=== PATIENT | female | born 1950 | race Caucasian/White ===

== ENCOUNTER 2017-02-02 18:54 | Inpatient (IN) ==
[2017-02-02] MEDS ORDERED: NITROGLYCERIN 2% OINT 1 INCH/GM PACK TOP STA (19:32)
[2017-02-02] MEDS ORDERED: FUROSEMIDE 100 MG/10 ML VIAL IV STA (19:32)
[2017-02-02] MEDS ORDERED: ONDANSETRON 4 MG/2 ML VIAL IM STA (19:32)
[2017-02-02] MEDS ORDERED: methylPREDNISolone SOD SUC 125 MG/2 ML VIAL IV STA (19:32)
[2017-02-02] MEDS ORDERED: cefTRIAXone 1,000 MG in SODIUM CHLORIDE 0.9% 100 ML IV STA (19:32)
[2017-02-02] MEDS ORDERED: ENOXAPARIN 100 MG/ML SYRINGE SUBCUT STA (19:32)
[2017-02-02] MEDS ORDERED: MORPHINE 2 MG/1 ML SYRINGE IV STA (19:32)
[2017-02-02] MEDS ORDERED: ASPIRIN 325 MG TABLET PO STA (19:32)
[2017-02-02] MEDS ORDERED: cefTRIAXone 1,000 MG VIAL ONE (19:51)
[2017-02-02] MEDS ORDERED: FUROSEMIDE 40 MG/4 ML VIAL ONE (19:51)
[2017-02-02] MEDS ORDERED: ONDANSETRON 4 MG/2 ML VIAL ONE (19:51)
[2017-02-02] MEDS ORDERED: ENOXAPARIN 100 MG/ML SYRINGE SUBCUT ONE (19:51)
[2017-02-02] MEDS ORDERED: MORPHINE 2 MG/1 ML SYRINGE ONE (19:52)
[2017-02-02] MEDS ORDERED: ASPIRIN 325 MG TABLET ONE (19:52)
[2017-02-02] MEDS ORDERED: methylPREDNISolone SOD SUC 125 MG/2 ML VIAL ONE (19:52)
[2017-02-02 19:56] LABS: Basophils # 0.1 10*3/uL (0.0-0.2); Basophils % 0.4 % (0.0-0.8); Eosinophils # 0.1 10*3/uL (0.0-0.87); Eosinophils % 1.3 % (0.00-10.9); Hematocrit 36.4 VOL% (35.7-47.0); Hemoglobin 11.8 GM/DL (12.0-16.0); Immature Granulocytes % 0.4 %; Immature Granulocytes Absolute 0.05 #; Lymphocytes # 2.8 10*3/uL (1.4-4.0); Lymphocytes % 24.8 % (21.3-54.2); Mean Corpuscular HGB Conc 32.4 GM/DL (32-36); Mean Corpuscular Hemoglobin 29 PG (27-34); Mean Corpuscular Volume 88.6 FL (87-102); Mean Platelet Volume 9.8 FL (9.6-12.0); Monocytes % 9.1 % (1.7-12.7); Neutrophils # 7.2 10*3/uL (1.4-7.4); Platelet Count 286 T/CUMM (130-400); Red Blood Count 4.11 MC/CUMM (3.8-5.5); Red Cell Distribution Width 14.9 % (9.3-17.3); White Blood Count 11.2 T/CUMM (4-12)
[2017-02-02 19:57] LABS: ABG Base Excess 5.9 MMOL/L (-2.5-2.5); ABG HCO3 29.2 MMOL/L (20-26); ABG Oxygen Saturation 94.8 % (95-100); ABG PCO2 37.6 MM HG (35-48); ABG PH 7.508 (7.35-7.45); ABG PO2 67.2 MM HG (80-95); ABG TCO2 30.4 MMOL/L (23-27); Allen Test Positive
[2017-02-02 20:00] LABS: Apearance,Urine CLEAR (Clear); Bilirubin,Urine Negative (Negative); Blood, Urine Negative (Negative); Glucose,Urine (UA) Negative (Negative); Ketones,Urine Negative (Negative); Nitrite,Urine Negative (Negative); Protein,Urine Negative; Urine Color Straw (Yellow); Urine Specific Gravity 1.021 (1.001-1.035); Urine Urobilinogen < 2.0 EU/DL (0.2-1.0); WBC,Urine <1 /HPF (0-6)
[2017-02-02] MEDS ORDERED: ALBUTEROL 2.5 MG/3 ML NEB RESP TX SCH (20:00)
--- NOTE | 2017-02-02 20:01 | Emergency Department Note ---
Krys Mohamud Brittany, am scribing for, and in the presence of, Gato Poon MD 19:35. Cleve Mohamud Charles R, MD, personally performed the services described in this documentation, ascribed by Tanvi Marcano in my presence, and it is both accurate and complete . Arrival - Arrival Chief Complaint: Shortness of Breath ED Nursing Triage Note: Pt arrives via ems from [facility] for further eval of new onset CHF. Pt states that she has been having worsening sob over the last 4-5 days. States that she has a cough and that she is unsure of any fever. Pt denies any chest pain at time of triage. States that she just feels "tight and tired" from not being able to breathe. No resp distress at this time. Mode of Arrival: Stretcher Limitations: No Limitations Source: Patient Time Seen by Provider: 02/02/17 19:13 - History of Present Illness HPI Narrative: This is a 66 y/o white female,who presents to the ED for further evaluation of acute CHF. She states for the past 4-5 days ago. She reports a cough as well. She has noticed dyspnea as well. She states she was seen at [facility] for acute CHF. She states she was given Lasix while at [facility]. Pt has no other complaints/pain in the ED at this time. Pt has a PMhx of CVA, HTN, dyslipidemia , and back/neck surgery. Pt has had an eye surgery, tonsilectomy, cholecystectomy, breast surgery, spinal surgery, and hysterectomy. Pt has a family medical Hx of cancer, diabetes, and HTN. Pt is a current every day smoker , although she states 3 days ago, she quit. Onset (ago): day(s) (Started 3-4 days ago) Consistency: constant Severity: moderate Date of Last Menstrual Period: Hyster Allergies/Adverse Reactions: Allergies Allergy/AdvReac Type Severity Reaction Status Date / Time Hydromorphone [From Dilaudid] Allergy ITCHING Verified 03/15/15 10:05 Home Medications: Home Medications Medication Instructions Recorded Confirmed Type Aspirin [Ecotrin] 81 mg PO DAILY 02/02/17 02/02/17 History Citalopram Hydrobromide [Celexa] 10 mg PO DAILY 02/02/17 02/02/17 History Escitalopram [Lexapro] 10 mg PO BEDTIME 02/02/17 02/02/17 History Valsartan 80 mg PO DAILY 02/02/17 02/02/17 History metFORMIN [Glucophage] 250 mg PO BID W/MEALS 02/02/17 02/02/17 History oxyCODONE/ACETAMINOPHEN 5-325 1 tablet PO DAILY PRN 02/02/17 02/02/17 History [Percocet 5-325] Review of System - Review of System 12 point system: reviewed and no additional remarkable complaints except as stated - Review of System Respiratory: Present: cough Cardiovascular: Present: chest pain, dyspnea on exertion Medical,Surgical,& Family Hx - Medical History Cardio: History of: Hypertension (was off meds for over one year until yesterday ) Neurology: History of: Cerebrovascular Accident Endocrine: History of: Diabetes Mellitus (NIDDM) (had been off meds due to weight loss for about one year until yesterday), Dyslipidemia Musculoskeletal: History of: Back/Neck Problems - Surgical History HEENT Surgeries: Surgical HX of: Eye Surgery, Tonsilectomy & Adenoidectomy Abdominal Surgeries: Surgical HX of: Appendectomy, Cholecystectomy Reproductive Surgeries: Surgical HX of;: Breast Surgery, Hysterectomy Orthopedic Surgeries: Surgical HX of;: Spinal Surgery (ruptured disk) - Family History Family History: Reports;: Family Cancer, Family Diabetes, Family Hypertension - Social History Smoking Status: Current every day smoker Frequency of Alcohol Use: None Type of Drug Use: None Exam Vital Signs: Vital Signs Temperature 99.0 F 02/02/17 18:54 Pulse Rate 120 H 02/02/17 19:00 Respiratory Rate 18 02/02/17 19:00 Blood Pressure 130/91 02/02/17 18:54 O2 Sat by Pulse Oximetry 94 L 02/02/17 18:54 - General General appearance: alert, in no apparent distress - Head Head exam: Present: atraumatic, normocephalic, normal inspection - Eye Eye exam: Present: normal appearance, PERRL, EOMI. Absent: nystagmus, miosis, mydriasis - ENT ENT exam: Present: normal exam, normal oropharynx, mucous membranes moist, TM's normal bilaterally, normal external ear exam - Neck Neck exam: Present: normal inspection, full ROM, trachea midline. Absent: tenderness, meningismus, lymphadenopathy, thyromegaly - Chest Chest inspection: Present: normal inspection, symmetric chest wall rise. Absent : tenderness, rash, abscess - Respiratory Respiratory exam: Present: rales, rhonchi, wheezes - Cardiovascular Cardiovascular exam: Present: normal rhythm, tachycardia, normal heart sounds. Absent: murmur, rubs, gallop, clicks, JVD - Abdominal Exam Abdominal exam: Present: soft, normal bowel sounds. Absent: distention, tenderness, guarding, rebound, rigidity - Rectal Exam Rectal exam: Present: deferred - Extremities Exam Extremities exam: Present: normal capillary refill, pedal edema (+1 pitting edema RLE, while the LLE has a boot placed on it. ). Absent: tenderness, joint swelling, calf tenderness - Back Exam Back exam: Present: normal inspection, full ROM. Absent: tenderness, muscle spasm, rashes - Neurological Exam Neurological exam: Present: alert, oriented X3, CN II-XII intact. Absent: motor sensory deficit - Psychiatric Psychiatric exam: Present: normal affect, normal mood. Absent: depressed, agitated, anxious, flat affect, manic - Skin Skin exam: Present: warm, dry, intact, normal color. Absent: rash, cyanosis, diaphoresis, erythema, pallor, mottled Course - Consultations Consultation #1: Will contact the hospitalist about admitting patient. Results - Labs CBC & BMP: 02/02/17 19:41 Lab Results: I have reviewed the patients labs Critical Care Time Critical Care Time: Yes Total Critical Care Time: 60 Disposition Clinical Impression: Acute exacerbation of chronic obstructive airways disease, Congestive heart failure, Elevated troponin, Acute dyspnea, Non-ST elevated myocardial infarction Case discussed with: patient, patient's family Disposition: Still a Patient Condition: Guarded Time of Disposition: 20:01
[2017-02-02 20:04] LABS: PT Patient Result 10.5 SECS
--- NOTE | 2017-02-02 20:13 | XRay Report ---
Portable chest Date: 02/02/2017 Clinical history: Shortness of breath Comparison: 02/02/2017 Technique: Portable AP sitting chest Findings: The heart is minimally enlarged with prominent pulmonary vasculature. Diffuse parenchymal findings persist especially in the lower lung zones with moderate bilateral pleural effusions. Stable mediastinum and osseous structures. Impression: Persistent cardiomegaly with moderate bilateral pleural effusions with moderate pulmonary edema with associated atelectasis/consolidation in the lower lobes. PROCEDURE INTERPRETED AT [facility] DEPARTMENT OF RADIOLOGY Final Report Signed by: Dr. Erlinda Wilson
--- NOTE | 2017-02-02 20:29 | Hospitalist History & Physical ---
Assessment and Plan - Time spent with patient Time spent with patient: Greater than 30 minutes (1) Congestive heart failure Status: Acute Assessment and plan: Patient presents with a four-day history of progressive dyspnea and findings consistent with new onset congestive heart failure. She does give a history of being febrile with a nonproductive cough and CT reveals possible atelectasis which I favor versus possible pneumonia. However she has been cultured and we will continue empiric IV antibiotics at this time. Will also obtain serial cardiac isoenzymes and EKGs while providing nitrates, beta-blockers, Lovenox, IV Lasix and potassium supplementation for tonight. Will continue O2 supplementation and nebulizer therapy. Will obtain echocardiogram to assess LV function and valvular anatomy as well as wall motion abnormalities in the a.m. Will consult cardiology to see and assist with her care. Current Visit: Yes (2) Elevated troponin Status: Acute Assessment and plan: As noted above she did have chest pain 4-5 days ago and now has an elevated troponin at [facility]. We will obtain serial cardiac biomarkers and EKGs. She is currently pain-free. Will continue medical therapy as noted above. Current Visit: Yes (3) HTN (hypertension) Status: Chronic Assessment and plan: Patient has chronic essential hypertension. We will continue her valsartan at this time. She will additionally receive nitrates, beta-blockers and diuretic therapy secondary to her elevated troponin and probable new onset CHF. Current Visit: No Qualifiers: Hypertension type: essential hypertension Qualified Code(s): I10 - Essential (primary) hypertension (4) Diabetes mellitus Status: Chronic Assessment and plan: Will continue her home metformin at this time and place on Accu-Cheks with sliding scale insulin. Current Visit: No Qualifiers: Diabetes mellitus type: type 2 Diabetes mellitus complication status: with circulatory complication Diabetes mellitus complication detail: with other circulatory complications Qualified Code(s): E11.59 - Type 2 diabetes mellitus with other circulatory complications History of Present Illness Chief complaint: Short of breath 4-5 days History of present illness: Ms. Etienne is a 66 year old white female with a history of hypertension, diabetes mellitus, remote CVA who presents with 4-5 day history of progressive shortness of breath with exertion and increasing orthopnea. She also states that about 4-5 days ago she had substernal chest discomfort with radiation up into her jaw that lasted about 30 minutes but was relieved with Prevacid. She states that she has been febrile and has had a nonproductive cough during this period of time. She denies any nausea, vomiting, diarrhea, constipation, melena , hematochezia, hematemesis, dysuria, hematuria, urinary frequency urgency or incontinence. Activity has been somewhat decreased and she had a left ankle fracture back in July and had this operated on approximately 2 weeks ago while in [facility]. Today she presented to [facility] and was evaluate and found to have new onset CHF and was transferred to [facility]. While at [facility] she was treated with Nitropaste, aspirin, Lasix. She had CT a of the chest wall where which revealed no evidence of pulmonary emboli however there was moderate bilateral pleural effusions and consolidation in the lower lobes that may represent atelectasis or pneumonia. Her laboratory studies were significant for an elevated proBNP of 4996 with normals being less than 450. Her troponin was elevated at 1.99 with normal being below 0.056. Her sodium was 141, potassium 3.8, chloride 105, bicarb 26, glucose 158, BUN 14, creatinine 0.8. Her white blood count was 9.4, hemoglobin 11.5, hematocrit 37.4, platelet count 298,000. D-dimer was elevated as well. Her primary care provider is Sandra in [facility]. Home Medications Medication Instructions Recorded Confirmed Type Aspirin [Ecotrin] 81 mg PO DAILY 02/02/17 02/02/17 History Citalopram Hydrobromide [Celexa] 10 mg PO DAILY 02/02/17 02/02/17 History Escitalopram [Lexapro] 10 mg PO BEDTIME 02/02/17 02/02/17 History Valsartan 80 mg PO DAILY 02/02/17 02/02/17 History metFORMIN [Glucophage] 250 mg PO BID W/MEALS 02/02/17 02/02/17 History oxyCODONE/ACETAMINOPHEN 5-325 1 tablet PO DAILY PRN 02/02/17 02/02/17 History [Percocet 5-325] Allergies Allergy/AdvReac Type Severity Reaction Status Date / Time Hydromorphone [From Dilaudid] Allergy ITCHING Verified 03/15/15 10:05 Medical,Surgical,& Family Hx - Medical History Cardio: History of: Hypertension (was off meds for over one year until yesterday ) Neurology: History of: Cerebrovascular Accident Endocrine: History of: Diabetes Mellitus (NIDDM) (had been off meds due to weight loss for about one year until yesterday), Dyslipidemia Musculoskeletal: History of: Back/Neck Problems - Surgical History HEENT Surgeries: Surgical HX of: Eye Surgery, Tonsilectomy & Adenoidectomy Abdominal Surgeries: Surgical HX of: Appendectomy, Cholecystectomy Reproductive Surgeries: Surgical HX of;: Breast Surgery, Hysterectomy Orthopedic Surgeries: Surgical HX of;: Spinal Surgery (ruptured disk) - Family History Family History: Reports;: Family Cancer, Family Diabetes, Family Hypertension - Social History Smoking Status: Current every day smoker Frequency of Alcohol Use: None Type of Drug Use: None 12 point system: reviewed and no additional remarkable complaints except as stated Exam - Constitutional Vitals: Period Temp Pulse Resp BP Sys/[place] Pulse Ox Last 24 Hr 99.0 F-99.0 F 115-124 18-22 130-130/91-91 94-97 General appearance: mild distress - Head Head exam: Present: normocephalic, atraumatic - Eye Eye exam: Present: EOMI. Absent: scleral icterus Pupils: Present: VLADIMIR - ENT ENT exam: Present: normal oropharynx - Neck Neck exam: Present: normal inspection. Absent: lymphadenopathy, meningismus, tenderness, thyromegaly - Respiratory Respiratory exam: Present: rales (She has rales in the bases bilaterally). Absent: rhonchi, wheezes - Cardiovascular Cardiovascular exam: Present: regular rate and rhythm, tachycardia. Absent: rubs, systolic murmur - GI/Abdominal GI/Abdominal exam: Present: normal bowel sounds, soft. Absent: mass, tenderness , rebound - Extremities Exam Extremities exam: Present: normal capillary refill, edema (Trace edema on the right lower extremity with splinting of her left lower extremity). Absent: calf tenderness - Back Exam Back exam: Present: normal inspection - Neurological Exam Neurological exam: Present: alert, oriented X3, CN II-XII intact. Absent: motor sensory deficit - Psychiatric Psychiatric exam: Present: normal affect, normal mood. Absent: agitated, anxious - Skin Skin exam: Present: warm, dry. Absent: erythema, rash Results - Labs CBC & BMP: 02/02/17 19:41 Lab Results: I have reviewed the past 24 hour labs Labs: Labs from [facility] have been reviewed and as indicated in the HPI. - EKG EKG shows: tachycardia, sinus rhythm - Diagnostic Findings Procedure: CT - chest: report reviewed by me
[2017-02-02 20:35] LABS: Albumin 3.6 G/DL (3.4-5.0); Bilirubin,Total 1.1 MG/DL (0.2-1.0); Calcium 8.8 MG/DL (8.5-10.1); Magnesium 2.1 MG/DL (1.8-2.4); Potassium 3.5 MMOL/L (3.5-5.1); Total Protein 6.8 G/DL (6.4-8.3)
[2017-02-02 20:37] LABS: Troponin I Only 2.12 NG/ML (0.00-0.045)
[2017-02-02] MEDS ORDERED: ACETAMINOPHEN 325 MG TABLET PO PRN (21:03)
[2017-02-02] MEDS ORDERED: DEXTROSE 50% 25 GM/50 ML VIAL IV PRN (21:03)
[2017-02-02] MEDS ORDERED: ONDANSETRON 4 MG/2 ML VIAL IV PRN (21:03)
[2017-02-02] MEDS ORDERED: GLUCAGON 1 MG VIAL IM PRN (21:03)
[2017-02-02] MEDS ORDERED: PNEUMOCOCCAL VACCINE (13 VALENT) 0.5 ML SYRINGE IM ONE (21:46)
[2017-02-02] MEDS: INSULIN LISPRO 100 UNIT/ML SUBCUT SCH (22:46)
[2017-02-02] MEDS: METOPROLOL TARTRATE 25 MG TABLET PO SCH (22:46)
[2017-02-02] MEDS: POTASSIUM CHLORIDE 20 MEQ TABLET PO SCH (22:47)
[2017-02-02] MEDS: AZITHROMYCIN INJ 500 MG in SODIUM CHLORIDE 0.9% 250 ML IV SCH (22:50)
[2017-02-02] MEDS: NITROGLYCERIN 2% OINT 1 INCH/GM PACK TOP SCH ×2 (23:36→23:37)
[2017-02-02] MEDS ORDERED: MORPHINE 2 MG/1 ML SYRINGE IV ONE (23:38)
[2017-02-03] MEDS: FUROSEMIDE 40 MG/4 ML VIAL IV SCH ×3 (00:50→17:02)
[2017-02-03] MEDS: IPRATROPIUM 500 MCG/2.5 ML NEB RESP TX SCH ×4 (00:54→19:15)
[2017-02-03] MEDS: POTASSIUM CHLORIDE 20 MEQ TABLET PO SCH ×2 (01:40→05:47)
[2017-02-03 02:11] LABS: Basophils % 0.2 % (0.0-0.8); Eosinophils % 0.1 % (0.00-10.9); Hematocrit 34.2 VOL% (35.7-47.0); Hemoglobin 10.9 GM/DL (12.0-16.0); Immature Granulocytes % 0.4 %; Immature Granulocytes Absolute 0.05 #; Lymphocytes # 0.6 10*3/uL (1.4-4.0); Mean Corpuscular HGB Conc 31.9 GM/DL (32-36); Mean Corpuscular Hemoglobin 29 PG (27-34); Mean Corpuscular Volume 89.3 FL (87-102); Mean Platelet Volume 9.8 FL (9.6-12.0); Monocytes # 0.2 10*3/uL (0.11-0.8); Monocytes % 1.2 % (1.7-12.7); Neutrophils # 11.5 10*3/uL (1.4-7.4); Neutrophils % 93.1 % (38.7-73.9); Platelet Count 272 T/CUMM (130-400); Red Blood Count 3.83 MC/CUMM (3.8-5.5); White Blood Count 12.4 T/CUMM (4-12)
[2017-02-03 02:39] LABS: Eosinophils 1 % (0-10); Lymphocytes 8 % (20-55); Segmented Neutrophils 90 % (50-85)
[2017-02-03 02:40] LABS: Platelet Estimate Normal; Total Cells Counted 100
[2017-02-03 02:54] LABS: Calcium 8.4 MG/DL (8.5-10.1); Magnesium 2.1 MG/DL (1.8-2.4); Osmolality,Calculated 294.1 MOS/KG (273-304); Potassium 3.5 MMOL/L (3.5-5.1); Risk Ratio 2.15; Thyroid Stimulating Hormone 1.23 uIU/ml (0.358-3.74); VLDL CHOLESTEROL 20.4 MG/DL
--- NOTE | 2017-02-03 04:56 | EKG Report ---
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
[2017-02-03] MEDS: NITROGLYCERIN 2% OINT 1 INCH/GM PACK TOP SCH ×3 (05:47→18:09)
--- NOTE | 2017-02-03 05:59 | EKG Report ---
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
[2017-02-03] MEDS ORDERED: metFORMIN 500 MG TABLET PO SCH (08:00)
--- NOTE | 2017-02-03 08:22 | EKG Report ---
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
[2017-02-03] MEDS ORDERED: ENOXAPARIN 100 MG/ML SYRINGE SUBCUT SCH (09:00)
--- NOTE | 2017-02-03 09:04 | Cardiology Consult Note ---
<Kerry Andrade E - Last Filed: 02/03/17 08:52> Assessment and Plan - Time spent with patient Time spent with patient: Greater than 30 minutes Time spent discussing smoking cessation with patient: 3 to 10 minutes (1) Chest pain Status: Resolved Assessment and plan: SEE PLAN OF CARE LISTED BELOW Current Visit: Yes (2) Dyslipidemia Status: Chronic Assessment and plan: SEE PLAN OF CARE LISTED BELOW Current Visit: Yes (3) Tobacco abuse Status: Chronic Assessment and plan: SEE PLAN OF CARE LISTED BELOW Current Visit: Yes (4) Cerebrovascular accident Status: Resolved Assessment and plan: SEE PLAN OF CARE LISTED BELOW Current Visit: No (5) HTN (hypertension) Status: Chronic Assessment and plan: SEE PLAN OF CARE LISTED BELOW Current Visit: No Qualifiers: Hypertension type: essential hypertension Qualified Code(s): I10 - Essential (primary) hypertension (6) Diabetes mellitus Status: Chronic Assessment and plan: SEE PLAN OF CARE LISTED BELOW Current Visit: No Qualifiers: Diabetes mellitus type: type 2 Diabetes mellitus complication status: with circulatory complication Diabetes mellitus complication detail: with other circulatory complications Qualified Code(s): E11.59 - Type 2 diabetes mellitus with other circulatory complications (7) Congestive heart failure Status: Acute Assessment and plan: SEE PLAN OF CARE LISTED BELOW Current Visit: Yes Qualifiers: Congestive heart failure chronicity: acute (8) Elevated troponin Status: Acute Assessment and plan: SEE PLAN OF CARE LISTED BELOW Current Visit: Yes History of Present Illness - Data of Consult Patient: new to practice Consult date: 02/03/17 Requesting Physician: Diego Delvalle - Consult Narrative Reason for consult: elevated troponin, SOB, chest pain History of present illness: [employer]: (NEW) DR. JURADO Ms. Etienne, 66WF, with no known prior history of coronary artery disease but risk factors significant for: Hypertension, dyslipidemia, diabetes,, CVA, tobaccoism. Patient presented in transfer from [facility] with worsening shortness of breath, increasing orthopnea, substernal chest pain. Troponin was noted to be 2.1 with an abnormal EKG. She has been housed on our telemetry unit overnight. Approximately 2 weeks ago, patient had surgery on her left ankle. She tolerated the procedure well and without complication. Approximately 10 days ago, patient began to experience substernal chest pain located in the center of her chest which radiated to her upper neck and bilateral jaws. This lasted approximately 30 minutes and was associated with shortness of breath. She took a PPI and this resolved. However, over the past 4-5 days, she has noticed profound shortness of breath with minimal exertion, often experiencing chest heaviness similar to the pain she had approximately 10 days ago. She states that exertion does re-create the discomfort, rest relieves the discomfort and she is currently chest pain-free. At the worst, chest pain is rated as a 7 on a scale of 1-10. CT Chest ruled out pulmonary embolism. Chest x-ray reveals CHF and echocardiogram has been ordered. Patient receives IV Lasix and reports that she diuresed a significant amount and is feeling much better. She is no longer orthopneic, nor is there JVD. ProBNP > 1000 on admission. Patient is NPO and I will further discuss with Dr. Jurado and await additional recommendations. 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. ASSESSMENT/PLAN: 1. CHEST PAIN, JAW PAIN - concerning for angina. Has received aspirin, beta- jesse, Lovenox, ARB, nitrates. 2. ACUTE CHF - etiology undetermined at this time. Echocardiogram is pending. Continue with diuresing, strict I&O and afterload reduction 3. HYPERTENSION - currently on beta blockade, ARB and is well controlled 4. DYSLIPIDEMIA - LDL 53. Will consider starting low-dose atorvastatin during the hospital stay should the patient be diagnosed with CAD 5. DIABETES - holding Metformin at this time as patient may require cardiac catheterization 6. HISTORY CVA - approximately 2 years ago, no residual effects. 7. TOBACCOISM - greater than 5 minutes was spent today discussing the merits of tobacco cessation. She tells me she will no longer smoke. CC: Emmett Waters MD - Home Medications and Allergies Home Medications: Home Medications Medication Instructions Recorded Confirmed Type Aspirin [Ecotrin] 81 mg PO DAILY 02/02/17 02/02/17 History Citalopram Hydrobromide [Celexa] 10 mg PO DAILY 02/02/17 02/02/17 History Escitalopram [Lexapro] 10 mg PO BEDTIME 02/02/17 02/02/17 History Valsartan 80 mg PO DAILY 02/02/17 02/02/17 History metFORMIN [Glucophage] 250 mg PO BID W/MEALS 02/02/17 02/02/17 History oxyCODONE/ACETAMINOPHEN 5-325 1 tablet PO DAILY PRN 02/02/17 02/02/17 History [Percocet 5-325] Allergies/Adverse Reactions: Allergies Allergy/AdvReac Type Severity Reaction Status Date / Time Hydromorphone [From Dilaudid] Allergy ITCHING Verified 03/15/15 10:05 Review of systems: REVIEW OF SYSTEMS: - Constitutional Constitutional: Present: Fatigue. Absent: syncope, anorexia, night sweats - EENT Eyes: Absent: blurry vision, loss of vision, diplopia Ears: Absent: decreased hearing, ear pain, ear discharge - Cardiovascular Cardiovascular: Present: chest pain with exertion, dyspnea on exertion. Denies edema, palpitations. Absent: chest pain with deep breath, claudication - Respiratory Respiratory: Present: URBINA, cough nonproductive. Absent: wheezing, hemoptysis, change in phlegm color - Gastrointestinal Gastrointestinal: Denies: constipation. Absent: Abdominal soreness since she has been coughing frequently. Denies hematemesis, hematochezia, melena, change in bowel habits, nausea - Genitourinary Genitourinary: Absent: difficulty urinating, dysuria, urinary hesitancy, flank pain - Musculoskeletal Musculoskeletal: Present: back pain Absent: muscle cramps, muscle weakness - Neurological Neurological: Denies frequent falls. Absent: dizziness, hemiparesis - Psychiatric Psychiatric: Absent: anxiety, depression, difficulty concentrating - Endocrine Endocrine: Present: fatigue. Absent: cold intolerance, heat intolerance, polyuria, polyphagia, polydipsia - Hematologic/Lymphatic Hematologic/Lymphatic: Present: easy bruising. Absent: easy bleeding -Integumentary Integumentary: Absent: lesions, rashes, skin breakdown Medical,Surgical,& Family Hx - Medical History Cardio: History of: Hypertension (was off meds for over one year until yesterday ) No history of: Aneurysm, Cardiac Dysrhythmia, CHF, CAD, [place] Neurology: History of: Cerebrovascular Accident Endocrine: History of: Diabetes Mellitus (NIDDM) (had been off meds due to weight loss for about one year until yesterday), Dyslipidemia Gastrointestinal: History of: Hemorrhoids Musculoskeletal: History of: Back/Neck Problems - Surgical History HEENT Surgeries: Surgical HX of: Eye Surgery, Tonsilectomy & Adenoidectomy Abdominal Surgeries: Surgical HX of: Appendectomy, Cholecystectomy Reproductive Surgeries: Surgical HX of;: Breast Surgery, Hysterectomy Orthopedic Surgeries: Surgical HX of;: Spinal Surgery (ruptured disk) - Family History Family History: Reports;: Family Cancer, Family Diabetes, Family Hypertension - Social History Smoking Status: Current every day smoker Have you smoked in the last 12 months: Yes Time spent discussing smoking cessation with patient: 3 to 10 minutes Frequency of Alcohol Use: None Type of Drug Use: None Physical Examination Vital Signs Temp Pulse Resp BP Pulse Ox 99.0 F 115 H 22 130/91 94 L 02/02/17 18:54 02/02/17 18:54 02/02/17 18:54 02/02/17 18:54 02/02/17 18:54 General: [Appears well with no apparent distress.] [Pleasant and cooperative. ] [Appears comfortable.] HEENT: [PERRL, normocephalic, atraumatic. Mucous membranes moist. No jaundice noted. Conjunctiva moist and clear, sclerae anicteric] Neck: No JVD/HJR, no thyromegaly or lymphadenopathy noted. No carotid bruit appreciated Cardiac: [Regular rate and rhythm.] [No obvious murmur, rub or gallop.] Lungs: [Inspiratory crackles noted posteriorly or in the bases. Not tachypneic ] Oxygen in use via nasal cannula Abdomen: Soft, bowel sounds normoactive. Nontender and nondistended. No abdominal bruit or thrill noted. No masses noted. Musculoskeletal: No fluid collection. Decreased range of motion is noted. Extremities: No clubbing, cyanosis noted. [ No edema noted right lower extremity.] Upper extremity pulses 2+. Right lower extremity pulses 2+. Left lower extremity in cast. Capillary refill less than 3 seconds. Skin: No unusual lesions or rashes. No skin breakdown appreciated. Neuro: Awake, alert and oriented 3. Moves all extremities well without hemiparesis or paralysis. No essential tremor is appreciated. Result/EKG - Labs CBC & BMP: 02/03/17 01:54 02/03/17 01:55 Lab Results: I have reviewed the past 24 hour labs Labs: Laboratory Results - last 24 hr 02/02/17 02/02/17 02/02/17 19:32 19:41 19:41 WBC 11.2 RBC 4.11 Hgb 11.8 L Hct 36.4 MCV 88.6 MCH 29 MCHC 32.4 RDW 14.9 Plt Count 286 MPV 9.8 Neut % (Auto) 64.0 Lymph % (Auto) 24.8 Rooks % (Auto) 9.1 Eos % (Auto) 1.3 Baso % (Auto) 0.4 Neut # (Auto) 7.2 Lymph # (Auto) 2.8 Rooks # (Auto) 1.0 H Eos # (Auto) 0.1 Baso # (Auto) 0.1 Total Counted Immature Gran % 0.4 Nucleated RBC % 0.0 Immature Gran # 0.05 Segmented Neutrophils Lymphocytes Monocytes Eosinophils Nucleated RBCs # 0.00 Platelet Estimate INR 1.0 PT Patient/Control Mix 10.5 ABG pH 7.508 H ABG pCO2 37.6 ABG pO2 67.2 L ABG HCO3 29.2 H ABG Total CO2 30.4 H ABG O2 Saturation 94.8 L ABG Base Excess 5.9 H FiO2 28.00 Sodium Potassium Chloride Carbon Dioxide Anion Gap BUN Creatinine GFR Calculation BUN/Creatinine Ratio Glucose POC Glucose Hemoglobin A1c Calculated Osmolality Calcium Magnesium Total Bilirubin AST ALT Alkaline Phosphatase Troponin I B-Natriuretic Peptide Total Protein Albumin Globulin Albumin/Globulin Ratio Triglycerides Cholesterol LDL Cholesterol VLDL Cholesterol HDL Cholesterol Heart Disease Risk Ratio Free T4 TSH 3rd Generation Urine Color Urine Appearance Urine pH Ur Specific [place] Urine Protein Urine Glucose (UA) Urine Ketones Urine Blood Urine Nitrate Urine Bilirubin Urine Urobilinogen Urine Leukocytes Urine WBC Ur Culture Indicated? 02/02/17 02/02/17 02/02/17 19:41 19:41 19:56 WBC RBC Hgb Hct MCV MCH MCHC RDW Plt Count MPV Neut % (Auto) Lymph % (Auto) [place] % (Auto) Eos % (Auto) Baso % (Auto) Neut # (Auto) Lymph # (Auto) [place] # (Auto) Eos # (Auto) Baso # (Auto) Total Counted Immature Gran % Nucleated RBC % Immature Gran # Segmented Neutrophils Lymphocytes Monocytes Eosinophils Nucleated RBCs # Platelet Estimate INR PT Patient/Control Mix ABG pH ABG pCO2 ABG pO2 ABG HCO3 ABG Total CO2 ABG O2 Saturation ABG Base Excess FiO2 Sodium 143 Potassium 3.5 Chloride 103 Carbon Dioxide 30 Anion Gap 13.5 BUN 12 Creatinine 0.70 GFR Calculation 103 BUN/Creatinine Ratio 17.00 Glucose 148 H POC Glucose Hemoglobin A1c Calculated Osmolality 287.0 Calcium 8.8 Magnesium 2.1 Total Bilirubin 1.10 H AST 30 ALT 20 Alkaline Phosphatase 109 Troponin I 2.120 H B-Natriuretic Peptide 1001 H Total Protein 6.8 Albumin 3.6 Globulin 3.2 Albumin/Globulin Ratio 1.1 Triglycerides Cholesterol LDL Cholesterol VLDL Cholesterol HDL Cholesterol Heart Disease Risk Ratio Free T4 TSH 3rd Generation Urine Color Straw Urine Appearance Clear Urine pH 5.0 Ur Specific [place] 1.021 Urine Protein Negative Urine Glucose (UA) Negative Urine Ketones Negative Urine Blood Negative Urine Nitrate Negative Urine Bilirubin Negative Urine Urobilinogen < 2.0 H Urine Leukocytes Negative Urine WBC <1 Ur Culture Indicated? Not indicated 02/02/17 02/02/17 02/03/17 21:38 23:05 01:54 WBC 12.4 H RBC 3.83 Hgb 10.9 L Hct 34.2 L MCV 89.3 MCH 29 MCHC 31.9 L RDW 15.0 Plt Count 272 MPV 9.8 Neut % (Auto) 93.1 H Lymph % (Auto) 5.0 L Rooks % (Auto) 1.2 L Eos % (Auto) 0.1 Baso % (Auto) 0.2 Neut # (Auto) 11.5 H Lymph # (Auto) 0.6 L [place] # (Auto) 0.2 Eos # (Auto) 0.0 Baso # (Auto) 0.0 Total Counted 100 Immature Gran % 0.4 Nucleated RBC % 0.0 Immature Gran # 0.05 Segmented Neutrophils 90 H Lymphocytes 8 L Monocytes 1 L Eosinophils 1 Nucleated RBCs # 0.00 Platelet Estimate Normal INR PT Patient/Control Mix ABG pH ABG pCO2 ABG pO2 ABG HCO3 ABG Total CO2 ABG O2 Saturation ABG Base Excess FiO2 Sodium Potassium Chloride Carbon Dioxide Anion Gap BUN Creatinine GFR Calculation BUN/Creatinine Ratio Glucose POC Glucose 278 H Hemoglobin A1c Calculated Osmolality Calcium Magnesium Total Bilirubin AST ALT Alkaline Phosphatase Troponin I 1.260 H D B-Natriuretic Peptide Total Protein Albumin Globulin Albumin/Globulin Ratio Triglycerides Cholesterol LDL Cholesterol VLDL Cholesterol HDL Cholesterol Heart Disease Risk Ratio Free T4 TSH 3rd Generation Urine Color Urine Appearance Urine pH Ur Specific [place] Urine Protein Urine Glucose (UA) Urine Ketones Urine Blood Urine Nitrate Urine Bilirubin Urine Urobilinogen Urine Leukocytes Urine WBC Ur Culture Indicated? 02/03/17 02/03/17 02/03/17 01:54 01:55 01:55 WBC RBC Hgb Hct MCV MCH MCHC RDW Plt Count MPV Neut % (Auto) Lymph % (Auto) [place]ooks % (Auto) Eos % (Auto) Baso % (Auto) Neut # (Auto) Lymph # (Auto) [place] # (Auto) Eos # (Auto) Baso # (Auto) Total Counted Immature Gran % Nucleated RBC % Immature Gran # Segmented Neutrophils Lymphocytes Monocytes Eosinophils Nucleated RBCs # Platelet Estimate INR PT Patient/Control Mix ABG pH ABG pCO2 ABG pO2 ABG HCO3 ABG Total CO2 ABG O2 Saturation ABG Base Excess FiO2 Sodium 142 Potassium 3.5 Chloride 102 Carbon Dioxide 30 Anion Gap 13.5 BUN 16 Creatinine 1.10 H GFR Calculation 60 BUN/Creatinine Ratio 14.00 Glucose 289 H POC Glucose Hemoglobin A1c 7.0 H Calculated Osmolality 294.1 Calcium 8.4 L Magnesium 2.1 Total Bilirubin AST ALT Alkaline Phosphatase Troponin I 1.170 H B-Natriuretic Peptide Total Protein Albumin Globulin Albumin/Globulin Ratio Triglycerides 102 Cholesterol 142 LDL Cholesterol 53.0 VLDL Cholesterol 20.4 HDL Cholesterol 66 H Heart Disease Risk Ratio 2.15 Free T4 TSH 3rd Generation 1.230 Urine Color Urine Appearance Urine pH Ur Specific [place] Urine Protein Urine Glucose (UA) Urine Ketones Urine Blood Urine Nitrate Urine Bilirubin Urine Urobilinogen Urine Leukocytes Urine WBC Ur Culture Indicated? 02/03/17 02/03/17 02/03/17 01:55 04:21 07:33 WBC RBC Hgb Hct MCV MCH MCHC RDW Plt Count MPV Neut % (Auto) Lymph % (Auto) [place] % (Auto) Eos % (Auto) Baso % (Auto) Neut # (Auto) Lymph # (Auto) [place] # (Auto) Eos # (Auto) Baso # (Auto) Total Counted Immature Gran % Nucleated RBC % Immature Gran # Segmented Neutrophils Lymphocytes Monocytes Eosinophils Nucleated RBCs # Platelet Estimate INR PT Patient/Control Mix ABG pH ABG pCO2 ABG pO2 ABG HCO3 ABG Total CO2 ABG O2 Saturation ABG Base Excess FiO2 Sodium Potassium Chloride Carbon Dioxide Anion Gap BUN Creatinine GFR Calculation BUN/Creatinine Ratio Glucose POC Glucose 230 H Hemoglobin A1c Calculated Osmolality Calcium Magnesium Total Bilirubin AST ALT Alkaline Phosphatase Troponin I 1.160 H B-Natriuretic Peptide Total Protein Albumin Globulin Albumin/Globulin Ratio Triglycerides Cholesterol LDL Cholesterol VLDL Cholesterol HDL Cholesterol Heart Disease Risk Ratio Free T4 1.38 TSH 3rd Generation Urine Color Urine Appearance Urine pH Ur Specific [place] Urine Protein Urine Glucose (UA) Urine Ketones Urine Blood Urine Nitrate Urine Bilirubin Urine Urobilinogen Urine Leukocytes Urine WBC Ur Culture Indicated? - Diagnostic Findings Procedure: Chest x-ray: report reviewed by me, CT - chest: report reviewed by me - EKG EKG results: interpreted by me EKG shows: tachycardia, sinus rhythm <Luis Alberto Jurado - Last Filed: 02/03/17 10:50> History of Present Illness - Consult Narrative History of present illness: Cardiology addendum Patient examined, chart reviewed and discussed with nurse Kerry Barajas. Patient fell July 22, 2016 and sustained ankle fracture. 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 She declined surgery and opted for a boot and physical therapy. Patient was told that her ankle would never heal without surgical repair. Patient underwent left ankle repair with surgical plate and pinning by Dr. Carmen in [place] on January 20, 2017. Patient short of breath for at least 6 days. She sleeps on 2 pillows and has nocturia 2 or 3 times nightly. Chest x-ray shows cardio megaly CHF. Peak troponin was 2.120 and now down to 1.160. EKG shows sinus rhythm with late transition versus possible old anterior FL and ST changes. Multiple risk factors. Active smoker Hypertension Diabetes Status post stroke 2014 Hyperlipidemia Plan Echo IV Lasix Carvedilol CAREY inhibitor Will need cardiac cath and aggressive risk factor modification Findings and plan discussed with patient and with her daughter Nadine CC: Emmett Waters MD Physical Examination Vital Signs Temp Pulse Resp BP Pulse Ox 99.0 F 115 H 22 130/91 94 L 02/02/17 18:54 02/02/17 18:54 02/02/17 18:54 02/02/17 18:54 02/02/17 18:54 Result/EKG - Labs CBC & BMP: 02/03/17 01:54 02/03/17 01:55 Labs: Laboratory Results - last 24 hr 02/02/17 02/02/17 02/02/17 19:32 19:41 19:41 WBC 11.2 RBC 4.11 Hgb 11.8 L Hct 36.4 MCV 88.6 MCH 29 MCHC 32.4 RDW 14.9 Plt Count 286 MPV 9.8 Neut % (Auto) 64.0 Lymph % (Auto) 24.8 Rooks % (Auto) 9.1 Eos % (Auto) 1.3 Baso % (Auto) 0.4 Neut # (Auto) 7.2 Lymph # (Auto) 2.8 Rooks # (Auto) 1.0 H Eos # (Auto) 0.1 Baso # (Auto) 0.1 Total Counted Immature Gran % 0.4 Nucleated RBC % 0.0 Immature Gran # 0.05 Segmented Neutrophils Lymphocytes Monocytes Eosinophils Nucleated RBCs # 0.00 Platelet Estimate INR 1.0 PT Patient/Control Mix 10.5 ABG pH 7.508 H ABG pCO2 37.6 ABG pO2 67.2 L ABG HCO3 29.2 H ABG Total CO2 30.4 H ABG O2 Saturation 94.8 L ABG Base Excess 5.9 H FiO2 28.00 Sodium Potassium Chloride Carbon Dioxide Anion Gap BUN Creatinine GFR Calculation BUN/Creatinine Ratio Glucose POC Glucose Hemoglobin A1c Calculated Osmolality Calcium Magnesium Total Bilirubin AST ALT Alkaline Phosphatase Troponin I B-Natriuretic Peptide Total Protein Albumin Globulin Albumin/Globulin Ratio Triglycerides Cholesterol LDL Cholesterol VLDL Cholesterol HDL Cholesterol Heart Disease Risk Ratio Free T4 TSH 3rd Generation Urine Color Urine Appearance Urine pH Ur Specific [place] Urine Protein Urine Glucose (UA) Urine Ketones Urine Blood Urine Nitrate Urine Bilirubin Urine Urobilinogen Urine Leukocytes Urine WBC Ur Culture Indicated? 02/02/17 02/02/17 02/02/17 19:41 19:41 19:56 WBC RBC Hgb Hct MCV MCH MCHC RDW Plt Count MPV Neut % (Auto) Lymph % (Auto) [place] % (Auto) Eos % (Auto) Baso % (Auto) Neut # (Auto) Lymph # (Auto) [place] # (Auto) Eos # (Auto) Baso # (Auto) Total Counted Immature Gran % Nucleated RBC % Immature Gran # Segmented Neutrophils Lymphocytes Monocytes Eosinophils Nucleated RBCs # Platelet Estimate INR PT Patient/Control Mix ABG pH ABG pCO2 ABG pO2 ABG HCO3 ABG Total CO2 ABG O2 Saturation ABG Base Excess FiO2 Sodium 143 Potassium 3.5 Chloride 103 Carbon Dioxide 30 Anion Gap 13.5 BUN 12 Creatinine 0.70 GFR Calculation 103 BUN/Creatinine Ratio 17.00 Glucose 148 H POC Glucose Hemoglobin A1c Calculated Osmolality 287.0 Calcium 8.8 Magnesium 2.1 Total Bilirubin 1.10 H AST 30 ALT 20 Alkaline Phosphatase 109 Troponin I 2.120 H B-Natriuretic Peptide 1001 H Total Protein 6.8 Albumin 3.6 Globulin 3.2 Albumin/Globulin Ratio 1.1 Triglycerides Cholesterol LDL Cholesterol VLDL Cholesterol HDL Cholesterol Heart Disease Risk Ratio Free T4 TSH 3rd Generation Urine Color Straw Urine Appearance Clear Urine pH 5.0 Ur Specific [place] 1.021 Urine Protein Negative Urine Glucose (UA) Negative Urine Ketones Negative Urine Blood Negative Urine Nitrate Negative Urine Bilirubin Negative Urine Urobilinogen < 2.0 H Urine Leukocytes Negative Urine WBC <1 Ur Culture Indicated? Not indicated 02/02/17 02/02/17 02/03/17 21:38 23:05 01:54 WBC 12.4 H RBC 3.83 Hgb 10.9 L Hct 34.2 L MCV 89.3 MCH 29 MCHC 31.9 L RDW 15.0 Plt Count 272 MPV 9.8 Neut % (Auto) 93.1 H Lymph % (Auto) 5.0 L [place] % (Auto) 1.2 L Eos % (Auto) 0.1 Baso % (Auto) 0.2 Neut # (Auto) 11.5 H Lymph # (Auto) 0.6 L [place] # (Auto) 0.2 Eos # (Auto) 0.0 Baso # (Auto) 0.0 Total Counted 100 Immature Gran % 0.4 Nucleated RBC % 0.0 Immature Gran # 0.05 Segmented Neutrophils 90 H Lymphocytes 8 L Monocytes 1 L Eosinophils 1 Nucleated RBCs # 0.00 Platelet Estimate Normal INR PT Patient/Control Mix ABG pH ABG pCO2 ABG pO2 ABG HCO3 ABG Total CO2 ABG O2 Saturation ABG Base Excess FiO2 Sodium Potassium Chloride Carbon Dioxide Anion Gap BUN Creatinine GFR Calculation BUN/Creatinine Ratio Glucose POC Glucose 278 H Hemoglobin A1c Calculated Osmolality Calcium Magnesium Total Bilirubin AST ALT Alkaline Phosphatase Troponin I 1.260 H D B-Natriuretic Peptide Total Protein Albumin Globulin Albumin/Globulin Ratio Triglycerides Cholesterol LDL Cholesterol VLDL Cholesterol HDL Cholesterol Heart Disease Risk Ratio Free T4 TSH 3rd Generation Urine Color Urine Appearance Urine pH Ur Specific [place] Urine Protein Urine Glucose (UA) Urine Ketones Urine Blood Urine Nitrate Urine Bilirubin Urine Urobilinogen Urine Leukocytes Urine WBC Ur Culture Indicated? 02/03/17 02/03/17 02/03/17 01:54 01:55 01:55 WBC RBC Hgb Hct MCV MCH MCHC RDW Plt Count MPV Neut % (Auto) Lymph % (Auto) [place] % (Auto) Eos % (Auto) Baso % (Auto) Neut # (Auto) Lymph # (Auto) [place] # (Auto) Eos # (Auto) Baso # (Auto) Total Counted Immature Gran % Nucleated RBC % Immature Gran # Segmented Neutrophils Lymphocytes Monocytes Eosinophils Nucleated RBCs # Platelet Estimate INR PT Patient/Control Mix ABG pH ABG pCO2 ABG pO2 ABG HCO3 ABG Total CO2 ABG O2 Saturation ABG Base Excess FiO2 Sodium 142 Potassium 3.5 Chloride 102 Carbon Dioxide 30 Anion Gap 13.5 BUN 16 Creatinine 1.10 H GFR Calculation 60 BUN/Creatinine Ratio 14.00 Glucose 289 H POC Glucose Hemoglobin A1c 7.0 H Calculated Osmolality 294.1 Calcium 8.4 L Magnesium 2.1 Total Bilirubin AST ALT Alkaline Phosphatase Troponin I 1.170 H B-Natriuretic Peptide Total Protein Albumin Globulin Albumin/Globulin Ratio Triglycerides 102 Cholesterol 142 LDL Cholesterol 53.0 VLDL Cholesterol 20.4 HDL Cholesterol 66 H Heart Disease Risk Ratio 2.15 Free T4 TSH 3rd Generation 1.230 Urine Color Urine Appearance Urine pH Ur Specific [place] Urine Protein Urine Glucose (UA) Urine Ketones Urine Blood Urine Nitrate Urine Bilirubin Urine Urobilinogen Urine Leukocytes Urine WBC Ur Culture Indicated? 02/03/17 02/03/17 02/03/17 01:55 04:21 07:33 WBC RBC Hgb Hct MCV MCH MCHC RDW Plt Count MPV Neut % (Auto) Lymph % (Auto) [place] % (Auto) Eos % (Auto) Baso % (Auto) Neut # (Auto) Lymph # (Auto) [place] # (Auto) Eos # (Auto) Baso # (Auto) Total Counted Immature Gran % Nucleated RBC % Immature Gran # Segmented Neutrophils Lymphocytes Monocytes Eosinophils Nucleated RBCs # Platelet Estimate INR PT Patient/Control Mix ABG pH ABG pCO2 ABG pO2 ABG HCO3 ABG Total CO2 ABG O2 Saturation ABG Base Excess FiO2 Sodium Potassium Chloride Carbon Dioxide Anion Gap BUN Creatinine GFR Calculation BUN/Creatinine Ratio Glucose POC Glucose 230 H Hemoglobin A1c Calculated Osmolality Calcium Magnesium Total Bilirubin AST ALT Alkaline Phosphatase Troponin I 1.160 H B-Natriuretic Peptide Total Protein Albumin Globulin Albumin/Globulin Ratio Triglycerides Cholesterol LDL Cholesterol VLDL Cholesterol HDL Cholesterol Heart Disease Risk Ratio Free T4 1.38 TSH 3rd Generation Urine Color Urine Appearance Urine pH Ur Specific [place] Urine Protein Urine Glucose (UA) Urine Ketones Urine Blood Urine Nitrate Urine Bilirubin Urine Urobilinogen Urine Leukocytes Urine WBC Ur Culture Indicated?
[2017-02-03] MEDS: INSULIN LISPRO 100 UNIT/ML SUBCUT SCH ×4 (10:31→21:25)
--- NOTE | 2017-02-03 10:40 | ECHO Report ---
Amelia Etienne Exam Date: 02/03/2017 08:09 Referring Physician: Technologist: Aura Polanco Age: 66 Ht (in): 66 Wt (lb): 193 Gender: F Exam Location: [facility], [place] Echo Indications: hypokalemia, acute kidney failure, elevated troponin, CPK, hypotension, Hx, A Fib, anemia, acute liver failure, COPD BP: 143 / 78 HR: 63 Rhythm: Sinus Technical Quality: Fair IMPRESSIONS Moderately to severely reduced LV systolic function with regional wall motion as described below. Grade 2/4 diastolic dysfunction. Trace to mild mitral regurgitation. Mild tricuspid regurgitation. A pleural effusion is incidentally noted. MEASUREMENTS (Male / Female) Normal Values 2D ECHO LV Diastolic Diameter PLAX 3.1 cm 4.2 - 5.9 / 3.9 - 5.3 cm LV Systolic Diameter PLAX 1.9 cm LV Fractional Shortening PLAX 39.9 % IVS Diastolic Thickness 1.5 cm 0.6 - 1.0 / 0.6 - 0.9 cm LVPW Diastolic Thickness 1.3 cm 0.6 - 1.0 / 0.6 - 0.9 cm RV Internal Dim ED PLAX 2.3 cm Aortic Root Diameter 2.2 cm LA Systolic Diameter LX 3.3 cm 3.0 - 4.0 / 2.7 - 3.8 cm DOPPLER TR Peak Velocity 276.0 cm/s TR Peak Gradient 30.5 mmHg FINDINGS Left Ventricle Normal left ventricular cavity size. Mild concentric left ventricular hypertrophy with diastolic dysfunction. Moderately to severely decreased left ventricular systolic function, left ventricular ejection fraction estimated at 30-35%. There is abnormal septal motion which can be consistent with underlying bundle branch block or prior cardiac surgery. Additionally, the apex and adjacent distal lateral, inferior and anterior araiza are severely hypokinetic, if not akinetic. The mid segments also appear moderately hypokinetic. There is grade 2 diastolic dysfunction. Right Ventricle Normal right ventricular size. Right Atrium Normal right atrial size. Left Atrium Normal left atrial size. Mitral Valve Mild mitral valve sclerosis. Trace - mild mitral valve regurgitation. Aortic Valve Mild aortic valve sclerosis without stenosis or regurgitation. Tricuspid Valve Morphologically normal tricuspid valve. Mild tricuspid valve regurgitation. Tricuspid regurgitation velocities suggest a PAP of 40 mmHg. Pulmonic Valve Pulmonic valve not well visualized. Pericardium No pericardial effusion. + pleural effusion. Aorta Normal size aortic root and proximal ascending aorta. Victorina Caldera MD (Electronically Signed) Final Date: 03 February 2017 10:38
[2017-02-03] MEDS: CITALOPRAM 20 MG TABLET PO SCH (10:58)
[2017-02-03] MEDS: PANTOPRAZOLE 40 MG TABLET PO SCH (10:58)
[2017-02-03] MEDS: ASPIRIN 325 MG TABLET PO SCH (10:58)
[2017-02-03] MEDS: METOPROLOL TARTRATE 25 MG TABLET PO SCH ×2 (10:59→21:25)
[2017-02-03] MEDS: VALSARTAN 80 MG TABLET PO SCH (11:00)
[2017-02-03] MEDS ORDERED: SODIUM CHLORIDE 0.9% 150 ML IV ONE (11:16)
[2017-02-03] MEDS: oxyCODONE/ACETAMINOPHEN 5-325 MG TABLET PO PRN ×2 (12:14→21:25)
--- NOTE | 2017-02-03 12:16 | Hospitalist Progress Note ---
Assessment and Plan (1) HTN (hypertension) Status: Chronic Assessment and plan: The patient will continue on treatment for hypertension and will have further diuresis to improve pulmonary edema. I am going to give a small bolus of saline to reduce her cramps. We hope to have coronary arteriogram soon by Dr. Jurado. Current Visit: No Qualifiers: Hypertension type: essential hypertension Qualified Code(s): I10 - Essential (primary) hypertension (2) Diabetes mellitus Status: Chronic Current Visit: No Qualifiers: Diabetes mellitus type: type 2 Diabetes mellitus complication status: with circulatory complication Diabetes mellitus complication detail: with other circulatory complications Qualified Code(s): E11.59 - Type 2 diabetes mellitus with other circulatory complications (3) Congestive heart failure Status: Acute Current Visit: Yes Qualifiers: Congestive heart failure chronicity: acute Hospitalist: Subjective Interval history: The patient is admitted to the hospital with shortness of breath. The patient has improved shortness of breath after diuresis but now has some cramps in the left leg. I coordinated care with Dr. Jurado. He plans coronary arteriogram to evaluate for ischemia. Exam - Constitutional Vitals: Period Temp Pulse Resp BP Sys/Radford Pulse Ox Last 24 Hr 97.2 F-99.0 F 84-133 16-22 99-130/56-91 89-97 Exam: Constitutional System: Minimal distress. No tremulousness. Head: Normocephalic, atraumatic. Ears, Nose and Throat System: No evidence of Otitis or Mastoiditis. No epistaxis or discharge Eyes System: Pupils equal, round, and reactive. Extraocular muscles intact. Neck: Supple, without adenopathy, No jugular venous distention. No thyromegaly , neck mass, or prior surgery apparent. Respiratory System: Chest few rales in bases to auscultation. Cardiovascular System: Heart with regular rate and rhythm. No murmur. GI System: Abdomen soft, nontender. Normo active bowel sounds present. Musculoskeletal System: limbs with no pedal edema. Full distal pulses. Neurological System: No discernable sensory deficit. No aphasia Psychiatric System: Conversation is rational Results - Labs CBC & BMP: 02/03/17 01:54 02/03/17 01:55 Lab Results: I have reviewed the past 24 hour labs
[2017-02-03] MEDS ORDERED: diphenhydrAMINE CAP 25 MG CAPSULE PO ONE (15:35)
[2017-02-03] MEDS ORDERED: DIAZEPAM 5 MG TABLET PO ONE (15:35)
[2017-02-03] MEDS ORDERED: POTASSIUM CHLORIDE RIDER 10 MEQ in PREMIX 1 EACH IV PRN (15:35)
[2017-02-03] MEDS ORDERED: MAGNESIUM SULF RIDER 2 GM in PREMIX 1 EACH IV PRN (15:35)
--- NOTE | 2017-02-03 16:14 | Physician Query Form ---
CLICK EDIT DOCUMENT TO SELECT QUERY ANSWER --> OK --> SIGN Karli Amador RN Clinical Balloon Artist W) [phone] (f) [phone] [email or web address]: Make your selection(s) from the choices in EACH section by typing an "x" and enter comments in the comment section. Please use your independent medical judgment in providing your response. This request does not imply that any particular answer is desired or expected. CLINICAL INDICATORS: (Providers should not edit this section) Based on documentation of "acute CHF", ESQ=[id number], Echo showed EF of 30-35% with Grade 2/4 diastolic dysfunction. Pt. treated with IV Lasix. Please provide further specificity regarding CHF. TYPE: ( X) Systolic (HFrEF - heart failure with reduced systolic function/EF) ( ) Diastolic (HFpEF - heart failure with preserved systolic function/EF) ( ) Combined Systolic/Diastolic ( ) Other, please specify: ( ) Clinically unable to determine ( ) The patient does NOT have CHF COMMENTS: PLEASE ALSO DOCUMENT RESPONSE IN PROGRESS NOTES AND/OR DISCHARGE SUMMARY Use of terms such as suspected, likely, or probable (associated with a specific diagnosis that is being evaluated, monitored, or treated as if it exists) are acceptable and can be restated in the discharge summary if not ruled out. MTDD
[2017-02-03] MEDS: cefTRIAXone 1,000 MG in SODIUM CHLORIDE 0.9% 100 ML IV SCH (21:27)
[2017-02-03] MEDS: AZITHROMYCIN INJ 500 MG in SODIUM CHLORIDE 0.9% 250 ML IV SCH (23:04)
[2017-02-04] MEDS: NITROGLYCERIN 2% OINT 1 INCH/GM PACK TOP SCH ×5 (00:39→21:04)
[2017-02-04] MEDS: IPRATROPIUM 500 MCG/2.5 ML NEB RESP TX SCH ×4 (01:04→20:07)
[2017-02-04 05:50] LABS: Basophils % 0.1 % (0.0-0.8); Eosinophils # 0.1 10*3/uL (0.0-0.87); Eosinophils % 0.7 % (0.00-10.9); Hematocrit 35.3 VOL% (35.7-47.0); Immature Granulocytes % 0.3 %; Immature Granulocytes Absolute 0.05 #; Lymphocytes # 3.8 10*3/uL (1.4-4.0); Mean Corpuscular HGB Conc 31.2 GM/DL (32-36); Mean Corpuscular Hemoglobin 28 PG (27-34); Mean Corpuscular Volume 90.3 FL (87-102); Mean Platelet Volume 10.3 FL (9.6-12.0); Monocytes # 1.1 10*3/uL (0.11-0.8); Monocytes % 7.8 % (1.7-12.7); Neutrophils # 9.4 10*3/uL (1.4-7.4); Neutrophils % 65.1 % (38.7-73.9); Platelet Count 293 T/CUMM (130-400); Red Blood Count 3.91 MC/CUMM (3.8-5.5); Red Cell Distribution Width 15.4 % (9.3-17.3); White Blood Count 14.4 T/CUMM (4-12)
[2017-02-04 06:18] LABS: Calcium 8.6 MG/DL (8.5-10.1); Osmolality,Calculated 290.1 MOS/KG (273-304); Potassium 3.6 MMOL/L (3.5-5.1)
[2017-02-04 06:19] LABS: Calcium 8.9 MG/DL (8.5-10.1); Magnesium 2.4 MG/DL (1.8-2.4); Osmolality,Calculated 293.8 MOS/KG (273-304); Potassium 3.6 MMOL/L (3.5-5.1)
--- NOTE | 2017-02-04 08:42 | History and Physical Update ---
Sedation H&P Update - History and Physical H&P was reviewed, the patient examined and there: are no changes in the patients condition since last H&P was completed. - Dictation Physical: refer to H&P completed by admitting physician - Physical Exam Mental Status: alert and oriented Heart: regular rate and rhythm Lung: clear to auscultation Abdomen: within normal limits Vitals: within normal limits - Sedation Plan for Sedation: moderate Patient Consent: Procedure disscussed with patient and patinet has consented., Risks and benefits were discussed with patient,including infection,, bleeding, injury to surrounding structures, seizure, temporary nerve, Patient understands and accepts potential risks/benefits and agrees to, proceed. ASA Class: IV Airway Assessment: Class II: Soft palate, uvula, fauces visible
[2017-02-04] MEDS: ASPIRIN 325 MG TABLET PO SCH (09:04)
[2017-02-04] MEDS ORDERED: LIDOCAINE 1% 20 ML VIAL ONE (09:05)
[2017-02-04] MEDS: PANTOPRAZOLE 40 MG TABLET PO SCH (09:05)
[2017-02-04] MEDS: VALSARTAN 80 MG TABLET PO SCH (09:05)
[2017-02-04] MEDS ORDERED: HEPARIN/NACL 0.9% 2 UNITS/ML 1,000 ML IV ONE (09:05)
--- NOTE | 2017-02-04 09:05 | Cardiology Progress Note ---
Cardiology - PN: Subj Interval history: Cardiology note Breathing better today after IV Lasix Telemetry shows steady sinus rhythm No chest pain Blood pressure 136/80 Regular rhythm no gallop Decreased breath sounds few crackles on the right side No leg edema femoral pulses 2+ without bruit Lab data today Sodium 142 potassium 3.6 chloride 101 CO2 31 BUN 29 creatinine 0.90 Glucose 148 magnesium 2.4 INR 1.0 hemoglobin 11.0 hematocrit 35.3 white count 14.4 Impression status post left ankle fracture repair January 21, 2016 in [place] New onset congestive heart failure Cardiomyopathy echo shows ejection fraction of 30-35% with multiple wall motion abnormalities Type 2 diabetes Chronic hypertension Status post stroke 2004 Active smoker Hyperlipidemia Plan Cardiac cath today with Dr. Caldera. Risk benefits discussed in detail with patient and daughter Nadine and children. All questions answered. She agrees to proceed as outlined. This patient will require aggressive lifestyle changes and risk factor modification. Exam (Progress Note) - Constitutional Vitals: Period Temp Pulse Resp BP Sys/Radford Pulse Ox Last 24 Hr 96.6 F-97.9 F 76-96 16-20 103-165/61-87 90-97 Result/EKG - Labs CBC & BMP: 02/04/17 05:21 02/04/17 05:21 Labs: Laboratory Results - last 24 hr 02/03/17 02/03/17 02/03/17 11:54 15:46 19:50 WBC RBC Hgb Hct MCV MCH MCHC RDW Plt Count MPV Neut % (Auto) Lymph % (Auto) [place] % (Auto) Eos % (Auto) Baso % (Auto) Neut # (Auto) Lymph # (Auto) [place] # (Auto) Eos # (Auto) Baso # (Auto) Immature Gran % Nucleated RBC % Immature Gran # Nucleated RBCs # Sodium Potassium Chloride Carbon Dioxide Anion Gap BUN Creatinine GFR Calculation BUN/Creatinine Ratio Glucose POC Glucose 302 H 114 H 154 H Calculated Osmolality Calcium Magnesium 02/04/17 02/04/17 02/04/17 05:21 05:21 05:21 WBC 14.4 H RBC 3.91 Hgb 11.0 L Hct 35.3 L MCV 90.3 MCH 28 MCHC 31.2 L RDW 15.4 Plt Count 293 MPV 10.3 Neut % (Auto) 65.1 Lymph % (Auto) 26.0 [place] % (Auto) 7.8 Eos % (Auto) 0.7 Baso % (Auto) 0.1 Neut # (Auto) 9.4 H Lymph # (Auto) 3.8 [place] # (Auto) 1.1 H Eos # (Auto) 0.1 Baso # (Auto) 0.0 Immature Gran % 0.3 Nucleated RBC % 0.0 Immature Gran # 0.05 Nucleated RBCs # 0.00 Sodium 144 142 Potassium 3.6 3.6 Chloride 102 101 Carbon Dioxide 32 31 Anion Gap 13.6 13.6 BUN 28 H 29 H Creatinine 0.90 0.90 GFR Calculation 76 76 BUN/Creatinine Ratio 31.00 H 32.00 H Glucose 142 H 134 H POC Glucose Calculated Osmolality 293.8 290.1 Calcium 8.9 8.6 Magnesium 2.4 02/04/17 06:54 WBC RBC Hgb Hct MCV MCH MCHC RDW Plt Count MPV Neut % (Auto) Lymph % (Auto) [place] % (Auto) Eos % (Auto) Baso % (Auto) Neut # (Auto) Lymph # (Auto) [place] # (Auto) Eos # (Auto) Baso # (Auto) Immature Gran % Nucleated RBC % Immature Gran # Nucleated RBCs # Sodium Potassium Chloride Carbon Dioxide Anion Gap BUN Creatinine GFR Calculation BUN/Creatinine Ratio Glucose POC Glucose 148 H Calculated Osmolality Calcium Magnesium
[2017-02-04] MEDS: CITALOPRAM 20 MG TABLET PO SCH (09:06)
[2017-02-04] MEDS ORDERED: SODIUM BICARBONATE 2.4 MEQ/5 ML VIAL ONE (09:06)
[2017-02-04] MEDS: METOPROLOL TARTRATE 25 MG TABLET PO SCH ×2 (09:06→21:02)
[2017-02-04] MEDS ORDERED: MIDAZOLAM 2 MG/2 ML VIAL ONE ×2 (09:23→09:40)
[2017-02-04] MEDS ORDERED: fentaNYL 100 MCG/2 ML VIAL ONE (09:24)
[2017-02-04] MEDS ORDERED: BIVALIRUDIN 250 MG VIAL IV ONE (10:14)
[2017-02-04] MEDS ORDERED: TICAGRELOR 90 MG TABLET ONE (10:14)
--- NOTE | 2017-02-04 10:58 | Cardiology Operative Report ---
Date of Procedure:: 02/04/17 Pre-op diagnosis: non-STEMI, cardiomyopathy Post-op diagnosis: other (Severe LAD stenosis) Procedure: 1. Selective left and right coronary angiography. 2. Left heart catheterization with left ventriculogram. 3. Right iliac angiography to rule out vascular complications. 4. Percutaneous intervention of the proximal mid LAD with placement of synergy 2.5 x 20 mm stent deployed at 2.77 mm. Impression: 1. Severe single-vessel coronary artery disease with 95% stenosis of the proximal mid LAD at the first diagonal and second diagonal origins. 2. Right dominant coronary arteries. 3. Ejection fraction 25 %. 4. Mild to moderate atheromatous disease of the right iliac artery without evidence of vascular complications. 5. Successful PCI of the proximal mid LAD as described above. 6. Moderate atheromatous disease of the mid RCA with 50-60% stenosis. 7. Mild mitral regurgitation. Plan: 1. DAPT > 12 months. 2. Risk factor modification. 3. Consider reevaluation of EF to determine candidacy for ICD placement. Consider LifeVest. Equipment: Diagnostic 6 Hungarian JL4, JR4, pigtail catheters Guiding 6 Hungarian EBU 3.5, 180cm Cuff-Protectwater wire, apex 2 x 12 mm balloon, synergy 2.5 x 20 mm drug-eluting stent, Quantum apex 2.75 x 15 mm non-compliant balloon Hemodynamics: Aortic pressure 103/57 mmHg, left ventricular pressure 98/16 mmHg, LVEDP 20 mmHg Sedation: Versed 3 mg, fentanyl 75 mcg Procedure: After informed consent was obtained the patient was prepped and draped in sterile fashion. The right groin was infiltrated with 1% lidocaine and the right femoral artery was accessed via modified Seldinger technique using a micropuncture needle and a 6 Hungarian femoral arterial sheath was placed. All catheter exchanges were performed over a guidewire under fluoroscopic guidance. Diagnostic 6 Hungarian JL4 and JR4 catheters were advanced to the left and right coronary arteries respectively and multiple cineangiograms were performed in varying degrees of obliquity and angulation. Thereafter a pigtail catheter was advanced into the left ventricle where hemodynamics were obtained followed by left ventriculogram. Percutaneous intevention of the proximal mid LAD was then performed as described below. At conclusion of the procedure right iliac angiography was performed to rule out vascular complications. Findings: 1. The left main artery is angiographically normal. 2. The left anterior descending artery extends to the apex and wraps around. There is a complex discrete stenosis that begins at the origin of the first diagonal artery and extends just past the second diagonal artery with up to 95% stenosis. Thereafter the vessel is small caliber, approximately 1 mm in the mid to distal segment. 3. There is not an intermediate ramus branch. 4. The circumflex artery is free of significant disease. It gives rise to 2 marginal branches, the first of which has a high origin that could be considered a ramus branch. 5. The right coronary artery is a dominant vessel. There is 50-60% and graphic stenosis in the mid segment that does not appear to be flow-limiting. 6. Ejection fraction is 25 % with akinesis of the mid to distal anterior wall, apex and distal inferior wall. 7. Mild mitral regurgitation. 8. No significant aortic stenosis. 9. The right iliac artery has mild to moderate atheromatous disease, but is without evidence of vascular complications. PCI: The patient was anticoagulated with Angiomax. After appropriate anticoagulation was confirmed with an ACT measurement, a guiding 6 Hungarian EBU 3.5 catheter was advanced to the left main artery. A Pennant 180 cm wire was used to traverse the left anterior descending artery. A apex 2 x 12 mm balloon was advanced to the site of stenosis and angioplasty was performed at 14 harmeet. Thereafter, a synergy 2.5 x 20 mm drug-eluting stent was advanced into the vessel but would not advance through the site of angioplasty. The stent was then removed and the apex 2 x 12 mm balloon was reintroduced, with repeat angioplasty performed at the first diagonal artery at 14 harmeet. The stent was then reintroduced, advanced to the site of angioplasty, and successfully deployed at 18 harmeet. Afterwards, a non-compliant Quantum apex 2.75 x 15 mm balloon was advanced into the stented segment and post-dilation was performed at 13 harmeet. Satisfactory angiographic result was obtained with appropriate step- up proximally and distally, and no evidence of residual vascular complications. Preoperatively there is 95% stenosis with JOHANNA-3 flow. Postoperatively there is 0% residual stenosis at the treated segment with JOHANNA-3 flow. Contrast use: Omnipaque 195 cc Fluoro time: 8.4 minutes Complications: none Specimens removed: none Devices implanted: stent as described above Anesthesia: moderate conscious sedation Surgeon / Physician: Victorina Caldera Master Hearth Technician: none (Tru Mak) Estimated blood loss: minimal Specimens: none sent Condition: stable Disposition: floor
--- NOTE | 2017-02-04 11:32 | Hospitalist Progress Note ---
Assessment and Plan (1) HTN (hypertension) Status: Chronic Assessment and plan: The patient will continue on treatment for hypertension. The patient will have standard post PTCA therapy. The cardiology team will evaluate possible need for AICD implant. Current Visit: No Qualifiers: Hypertension type: essential hypertension Qualified Code(s): I10 - Essential (primary) hypertension (2) Diabetes mellitus Status: Chronic Current Visit: No Qualifiers: Diabetes mellitus type: type 2 Diabetes mellitus complication status: with circulatory complication Diabetes mellitus complication detail: with other circulatory complications Qualified Code(s): E11.59 - Type 2 diabetes mellitus with other circulatory complications (3) Congestive heart failure Status: Acute Current Visit: Yes Qualifiers: Congestive heart failure chronicity: acute Hospitalist: Subjective Interval history: The patient had coronary arteriogram today. Dr. Caldera was able to perform PTCA of the proximal and mid segment of the left anterior descending artery with good result. The patient has overall global hypokinesis. The patient be recovered back to the telemetry saba. Further echocardiogram will be obtained to evaluate the need for AICD placement. Exam - Constitutional Vitals: Period Temp Pulse Resp BP Sys/Radford Pulse Ox Last 24 Hr 96.6 F-97.9 F 76-96 16-20 103-165/61-87 90-97 Exam: Constitutional System: Minimal distress. No tremulousness. Head: Normocephalic, atraumatic. Ears, Nose and Throat System: No evidence of Otitis or Mastoiditis. No epistaxis or discharge Eyes System: Pupils equal, round, and reactive. Extraocular muscles intact. Neck: Supple, without adenopathy, No jugular venous distention. No thyromegaly , neck mass, or prior surgery apparent. Respiratory System: Chest few rales in bases to auscultation. Cardiovascular System: Heart with regular rate and rhythm. No murmur. GI System: Abdomen soft, nontender. Normo active bowel sounds present. Musculoskeletal System: limbs with no pedal edema. Full distal pulses. Neurological System: No discernable sensory deficit. No aphasia Psychiatric System: Conversation is rational Results - Labs CBC & BMP: 02/04/17 05:21 02/04/17 05:21 Lab Results: I have reviewed the past 24 hour labs
[2017-02-04] MEDS: INSULIN LISPRO 100 UNIT/ML SUBCUT SCH ×4 (12:43→22:26)
--- NOTE | 2017-02-04 12:57 | EKG Report ---
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
[2017-02-04] MEDS: FUROSEMIDE 40 MG/4 ML VIAL IV SCH ×2 (13:14→17:13)
[2017-02-04] MEDS: oxyCODONE/ACETAMINOPHEN 5-325 MG TABLET PO PRN ×2 (14:30→21:02)
[2017-02-04] MEDS: ATORVASTATIN 80 MG TABLET PO SCH (21:02)
[2017-02-04] MEDS: TICAGRELOR 90 MG TABLET PO SCH (21:02)
[2017-02-04] MEDS: cefTRIAXone 1,000 MG in SODIUM CHLORIDE 0.9% 100 ML IV SCH (21:04)
[2017-02-04] MEDS: AZITHROMYCIN INJ 500 MG in SODIUM CHLORIDE 0.9% 250 ML IV SCH (21:57)
[2017-02-05] MEDS: NITROGLYCERIN 2% OINT 1 INCH/GM PACK TOP SCH ×2 (00:30→07:29)
[2017-02-05] MEDS: IPRATROPIUM 500 MCG/2.5 ML NEB RESP TX SCH ×4 (01:18→19:09)
[2017-02-05 04:04] LABS: Basophils % 0.4 % (0.0-0.8); Eosinophils # 0.2 10*3/uL (0.0-0.87); Eosinophils % 2.4 % (0.00-10.9); Hematocrit 33.9 VOL% (35.7-47.0); Hemoglobin 10.7 GM/DL (12.0-16.0); Immature Granulocytes % 0.3 %; Immature Granulocytes Absolute 0.03 #; Mean Corpuscular HGB Conc 31.6 GM/DL (32-36); Mean Corpuscular Hemoglobin 29 PG (27-34); Mean Corpuscular Volume 90.4 FL (87-102); Mean Platelet Volume 10.3 FL (9.6-12.0); Monocytes # 0.8 10*3/uL (0.11-0.8); Monocytes % 8.9 % (1.7-12.7); Neutrophils # 5.1 10*3/uL (1.4-7.4); Platelet Count 296 T/CUMM (130-400); Red Blood Count 3.75 MC/CUMM (3.8-5.5); Red Cell Distribution Width 15.2 % (9.3-17.3); White Blood Count 9.2 T/CUMM (4-12)
[2017-02-05 04:31] LABS: Calcium 8.7 MG/DL (8.5-10.1); Magnesium 2.5 MG/DL (1.8-2.4); Potassium 3.7 MMOL/L (3.5-5.1)
[2017-02-05] MEDS: ENOXAPARIN 40 MG/0.4 ML SYRINGE SUBCUT SCH (05:14)
[2017-02-05] MEDS: PANTOPRAZOLE 40 MG TABLET PO SCH (08:14)
[2017-02-05] MEDS: TICAGRELOR 90 MG TABLET PO SCH ×2 (08:14→20:41)
[2017-02-05] MEDS: CITALOPRAM 20 MG TABLET PO SCH (08:15)
[2017-02-05] MEDS: ASPIRIN EC 81 MG TABLET PO SCH (08:15)
[2017-02-05] MEDS: VALSARTAN 80 MG TABLET PO SCH (08:15)
[2017-02-05] MEDS: METOPROLOL TARTRATE 25 MG TABLET PO SCH (08:15)
[2017-02-05] MEDS: FUROSEMIDE 40 MG/4 ML VIAL IV SCH (08:15)
[2017-02-05] MEDS: INSULIN LISPRO 100 UNIT/ML SUBCUT SCH ×4 (08:20→20:40)
--- NOTE | 2017-02-05 09:24 | Cardiology Progress Note ---
<Kerry Andrade E - Last Filed: 02/05/17 09:24> Assessment and Plan - Time spent with patient Time spent with patient: Greater than 30 minutes Time spent discussing smoking cessation with patient: 3 to 10 minutes (1) Chest pain Status: Resolved Assessment and plan: SEE PLAN OF CARE LISTED BELOW Current Visit: Yes (2) Dyslipidemia Status: Chronic Assessment and plan: SEE PLAN OF CARE LISTED BELOW Current Visit: Yes (3) Tobacco abuse Status: Chronic Assessment and plan: SEE PLAN OF CARE LISTED BELOW Current Visit: Yes (4) Cerebrovascular accident Status: Resolved Assessment and plan: SEE PLAN OF CARE LISTED BELOW Current Visit: No (5) HTN (hypertension) Status: Chronic Assessment and plan: SEE PLAN OF CARE LISTED BELOW Current Visit: No Qualifiers: Hypertension type: essential hypertension Qualified Code(s): I10 - Essential (primary) hypertension (6) Diabetes mellitus Status: Chronic Assessment and plan: SEE PLAN OF CARE LISTED BELOW Current Visit: No Qualifiers: Diabetes mellitus type: type 2 Diabetes mellitus complication status: with circulatory complication Diabetes mellitus complication detail: with other circulatory complications (7) Congestive heart failure Status: Acute Assessment and plan: SEE PLAN OF CARE LISTED BELOW Current Visit: Yes Qualifiers: Congestive heart failure chronicity: acute (8) Ischemic cardiomyopathy Status: Acute Assessment and plan: SEE PLAN OF CARE LISTED BELOW Current Visit: Yes (9) CAD (coronary artery disease) Status: Chronic Assessment and plan: SEE PLAN OF CARE LISTED BELOW Current Visit: Yes Qualifiers: Coronary Disease-Associated Artery/Lesion type: [place] artery [place] vs. transplanted heart: [place] heart Associated angina: with stable angina Qualified Code(s): I25.118 - Atherosclerotic heart disease of [place] coronary artery with other forms of angina pectoris (10) Non-ST elevated myocardial infarction Status: Acute Assessment and plan: SEE PLAN OF CARE LISTED BELOW Current Visit: Yes Cardiology - PN: Subj Interval history: DEVELOPER [employer]: (NEW) DR. JURADO SUMMARY: Ms. Etienne, 66WF, with no known prior history of coronary artery disease but risk factors significant for: Hypertension, dyslipidemia, diabetes, CVA, AND tobaccoism. Patient was admitted to telemetry February 02, 2017 with complaints of substernal chest pain, shortness of breath, orthopnea. She was diagnosed with NSTEMI. Also discovered is a new diagnosis of cardiomyopathy, EF 25%. Echo: Grade II diastolic dysfunction, PAP 40mmHg. She underwent elective cardiac catheterization February 03, [address] Victorina Caldera with the following noted: Impression: 1. Severe single-vessel coronary artery disease with 95% stenosis of the proximal mid LAD at the first diagonal and second diagonal origins. 2. Right dominant coronary arteries. 3. Ejection fraction 25 %. 4. Mild to moderate atheromatous disease of the right iliac artery without evidence of vascular complications. 5. Successful PCI of the proximal mid LAD as described above. 6. Moderate atheromatous disease of the mid RCA with 50-60% stenosis. 7. Mild mitral regurgitation. Plan: 1. DAPT > 12 months. 2. Risk factor modification. 3. Consider reevaluation of EF to determine candidacy for ICD placement. FEBRUARY 05, 2017: Overnight, patient has done well. Denies chest pain, heaviness or tightness. Continue to wear her oxygen via nasal biprong's. SPO2 saturation 94% this morning on oxygen. She remains mildly tachypneic and I will give her an extra dose of IV Lasix this morning. We discussed the need for LifeVest and she is agreeable. Will consult LifeVest associate sales representative this morning. Labs are stable. I am not sure she is ready for discharge today as she does remain short of breath at rest, using her oxygen. However, around back this afternoon and if she is feeling better, less tachypneic and off her oxygen, she may be a candidate for discharge this afternoon. She is on a good heart failure medication regimen including: Metoprolol, Diovan. Continue Aspirin, Atorvastatin, Brilinta. ASSESSMENT/PLAN: 1. CHEST PAIN, JAW PAIN - NSTEMI. Now revascularized. Resolved. 2. ACUTE CHF - secondary to severely reduced LVEF (EF 25%), NYHA Class III. Contiue diuresing, afterload reduction. 3. HYPERTENSION - currently on beta blockade, ARB and is well controlled 4. DYSLIPIDEMIA - LDL 53. Atorvastatin started with new diagnosis of CAD. 5. DIABETES - holding Metformin and may resume morning. 6. HISTORY CVA - approximately 2 years ago, no residual effects. 7. TOBACCOISM - greater than 5 minutes was spent today discussing the merits of tobacco cessation. She tells me she will no longer smoke. 8. CAD - see [facility] report above. No revascularized. 9. NSTEMI - on appropriate regimen 10. ICM - EF 25%. Will arrange for LifeVest. Will reevaluate EF in 90 days and if not improved, may be candidate for ICD. Exam (Progress Note) - Constitutional Vitals: Period Temp Pulse Resp BP Sys/[place]ford Pulse Ox Last 24 Hr 96 F-98 F 66-89 16-20 88-137/45-76 90-99 Exam: General: [Appears well with no apparent distress.] [Pleasant and cooperative. ] [Appears comfortable.] HEENT: [PERRL, normocephalic, atraumatic. Mucous membranes moist. No jaundice noted. Conjunctiva moist and clear, sclerae anicteric] Neck: Difficult to assess for JVD due to habitus. No thyromegaly or lymphadenopathy noted. No carotid bruit appreciated Cardiac: [Regular rate and rhythm.] [No obvious murmur, rub or gallop.] Lungs: [Relatively clear though slightly tachypneic. Oxygen in use via nasal cannula Abdomen: Soft, bowel sounds normoactive. Nontender and nondistended. No abdominal bruit or thrill noted. No masses noted. Musculoskeletal: No fluid collection. Decreased range of motion is noted. Extremities: Right groin soft, free of hematoma or bruit. No clubbing, cyanosis noted. [ No edema noted right lower extremity.] Upper extremity pulses 2+. Right lower extremity pulses 2+. Left lower extremity in cast. Capillary refill less than 3 seconds. Skin: No unusual lesions or rashes. No skin breakdown appreciated. Neuro: Awake, alert and oriented 3. Moves all extremities well without hemiparesis or paralysis. No essential tremor is appreciated. Result/EKG - Labs CBC & BMP: 02/05/17 02:42 02/05/17 02:42 Lab Results: I have reviewed the past 24 hour labs Labs: Laboratory Results - last 24 hr 02/04/17 02/04/17 02/04/17 13:08 15:46 21:16 WBC RBC Hgb Hct MCV MCH MCHC RDW Plt Count MPV Neut % (Auto) Lymph % (Auto) [place] % (Auto) Eos % (Auto) Baso % (Auto) Neut # (Auto) Lymph # (Auto) [place] # (Auto) Eos # (Auto) Baso # (Auto) Immature Gran % Nucleated RBC % Immature Gran # Nucleated RBCs # Sodium Potassium Chloride Carbon Dioxide Anion Gap BUN Creatinine GFR Calculation BUN/Creatinine Ratio Glucose POC Glucose 144 H 161 H 165 H Calculated Osmolality Calcium Magnesium 02/05/17 02/05/17 02/05/17 02:42 02:42 07:21 WBC 9.2 D RBC 3.75 L Hgb 10.7 L Hct 33.9 L MCV 90.4 MCH 29 MCHC 31.6 L RDW 15.2 Plt Count 296 MPV 10.3 Neut % (Auto) 55.0 Lymph % (Auto) 33.0 [place] % (Auto) 8.9 Eos % (Auto) 2.4 Baso % (Auto) 0.4 Neut # (Auto) 5.1 Lymph # (Auto) 3.0 [place] # (Auto) 0.8 Eos # (Auto) 0.2 Baso # (Auto) 0.0 Immature Gran % 0.3 Nucleated RBC % 0.0 Immature Gran # 0.03 Nucleated RBCs # 0.00 Sodium 143 Potassium 3.7 Chloride 101 Carbon Dioxide 32 Anion Gap 13.7 BUN 26 H Creatinine 0.80 GFR Calculation 87 BUN/Creatinine Ratio 32.00 H Glucose 112 H POC Glucose 151 H Calculated Osmolality 290.0 Calcium 8.7 Magnesium 2.5 H - EKG EKG results: interpreted by id EKG shows: sinus rhythm Specialty Discharge - Follow Up or Referrals <Luis Alberto Jurado - Last Filed: 02/05/17 10:54> Cardiology - PN: Subj Interval history: Cardiology addendum Patient examined and chart reviewed. Status post recent anterior infarct with congestive heart failure Status post proximal LAD stent 02/04/2017 Ischemic cardia myopathy EF 25%, severe anteroapical hypokinesis. Plan Routine groin precautions discussed Aspirin 81 mg daily and Brilinta 90 mg twice daily DC metoprolol Begin Coreg 3.125 mg twice daily DC IV Lasix Change to Lasix 40 mg twice daily po BMP in a.m. LifeVest Home tomorrow No smoking Discussed with patient and her daughter Nadine. Exam (Progress Note) - Constitutional Vitals: Period Temp Pulse Resp BP Sys/[place] Pulse Ox Last 24 Hr 96 F-98 F 66-89 16-20 88-137/45-76 90-99 Result/EKG - Labs CBC & BMP: 02/05/17 02:42 02/05/17 02:42 Labs: Laboratory Results - last 24 hr 02/04/17 02/04/17 02/04/17 13:08 15:46 21:16 WBC RBC Hgb Hct MCV MCH MCHC RDW Plt Count MPV Neut % (Auto) Lymph % (Auto) [place] % (Auto) Eos % (Auto) Baso % (Auto) Neut # (Auto) Lymph # (Auto) [place] # (Auto) Eos # (Auto) Baso # (Auto) Immature Gran % Nucleated RBC % Immature Gran # Nucleated RBCs # Sodium Potassium Chloride Carbon Dioxide Anion Gap BUN Creatinine GFR Calculation BUN/Creatinine Ratio Glucose POC Glucose 144 H 161 H 165 H Calculated Osmolality Calcium Magnesium 02/05/17 02/05/17 02/05/17 02:42 02:42 07:21 WBC 9.2 D RBC 3.75 L Hgb 10.7 L Hct 33.9 L MCV 90.4 MCH 29 MCHC 31.6 L RDW 15.2 Plt Count 296 MPV 10.3 Neut % (Auto) 55.0 Lymph % (Auto) 33.0 [place] % (Auto) 8.9 Eos % (Auto) 2.4 Baso % (Auto) 0.4 Neut # (Auto) 5.1 Lymph # (Auto) 3.0 [place] # (Auto) 0.8 Eos # (Auto) 0.2 Baso # (Auto) 0.0 Immature Gran % 0.3 Nucleated RBC % 0.0 Immature Gran # 0.03 Nucleated RBCs # 0.00 Sodium 143 Potassium 3.7 Chloride 101 Carbon Dioxide 32 Anion Gap 13.7 BUN 26 H Creatinine 0.80 GFR Calculation 87 BUN/Creatinine Ratio 32.00 H Glucose 112 H POC Glucose 151 H Calculated Osmolality 290.0 Calcium 8.7 Magnesium 2.5 H
[2017-02-05] MEDS ORDERED: FUROSEMIDE 40 MG/4 ML VIAL IV ONE (09:39)
[2017-02-05] MEDS ORDERED: SPIRONOLACTONE 25 MG TABLET PO ONE (09:41)
--- NOTE | 2017-02-05 11:37 | Hospitalist Progress Note ---
Assessment and Plan (1) HTN (hypertension) Status: Chronic Assessment and plan: The patient will continue on treatment for hypertension. The patient will have standard post PTCA therapy. The cardiology team will evaluate possible need for AICD implant. The patient will have LifeVest at discharge which we anticipate tomorrow morning. Current Visit: No Qualifiers: Hypertension type: essential hypertension Qualified Code(s): I10 - Essential (primary) hypertension (2) Diabetes mellitus Status: Chronic Current Visit: No Qualifiers: Diabetes mellitus type: type 2 Diabetes mellitus complication status: with circulatory complication Diabetes mellitus complication detail: with other circulatory complications (3) Congestive heart failure Status: Acute Current Visit: Yes Qualifiers: Congestive heart failure chronicity: acute Hospitalist: Subjective Interval history: The patient is resting quietly in her room. She had PTCA of the left anterior descending artery yesterday. The patient has less shortness of breath than she did at the time of admission. The patient has no angina. Dr. aguayo anticipates discharge home in the morning. Exam - Constitutional Vitals: Period Temp Pulse Resp BP Sys/[place] Pulse Ox Last 24 Hr 96 F-98 F 66-89 16-20 88-137/45-76 90-99 Exam: Constitutional System: Minimal distress. No tremulousness. Head: Normocephalic, atraumatic. Ears, Nose and Throat System: No evidence of Otitis or Mastoiditis. No epistaxis or discharge Eyes System: Pupils equal, round, and reactive. Extraocular muscles intact. Neck: Supple, without adenopathy, No jugular venous distention. No thyromegaly , neck mass, or prior surgery apparent. Respiratory System: Chest few rales in bases to auscultation. Cardiovascular System: Heart with regular rate and rhythm. No murmur. GI System: Abdomen soft, nontender. Normo active bowel sounds present. Musculoskeletal System: limbs with no pedal edema. Full distal pulses. Neurological System: No discernable sensory deficit. No aphasia Psychiatric System: Conversation is rational Results - Labs CBC & BMP: 02/05/17 02:42 02/05/17 02:42 Lab Results: I have reviewed the past 24 hour labs Specialty Discharge - Follow Up or Referrals
[2017-02-05 13:19] LABS: Calcium 9.4 MG/DL (8.5-10.1); Magnesium 2.5 MG/DL (1.8-2.4); Osmolality,Calculated 283.5 MOS/KG (273-304); Potassium 3.7 MMOL/L (3.5-5.1)
[2017-02-05] MEDS: FUROSEMIDE 40 MG TABLET PO SCH (17:26)
[2017-02-05] MEDS: cefTRIAXone 1,000 MG in SODIUM CHLORIDE 0.9% 100 ML IV SCH (20:40)
[2017-02-05] MEDS: ATORVASTATIN 80 MG TABLET PO SCH (20:41)
[2017-02-05] MEDS: CARVEDILOL 3.125 MG TABLET PO SCH (20:41)
[2017-02-05] MEDS: oxyCODONE/ACETAMINOPHEN 5-325 MG TABLET PO PRN (20:42)
[2017-02-05] MEDS: AZITHROMYCIN INJ 500 MG in SODIUM CHLORIDE 0.9% 250 ML IV SCH (21:52)
[2017-02-06] MEDS: IPRATROPIUM 500 MCG/2.5 ML NEB RESP TX SCH ×2 (00:10→06:56)
[2017-02-06 04:55] LABS: Basophils % 0.5 % (0.0-0.8); Eosinophils # 0.3 10*3/uL (0.0-0.87); Eosinophils % 3.1 % (0.00-10.9); Hematocrit 36.8 VOL% (35.7-47.0); Hemoglobin 11.8 GM/DL (12.0-16.0); Immature Granulocytes % 0.4 %; Immature Granulocytes Absolute 0.03 #; Lymphocytes # 2.8 10*3/uL (1.4-4.0); Mean Corpuscular HGB Conc 32.1 GM/DL (32-36); Mean Corpuscular Hemoglobin 29 PG (27-34); Mean Corpuscular Volume 88.9 FL (87-102); Mean Platelet Volume 9.9 FL (9.6-12.0); Monocytes # 0.8 10*3/uL (0.11-0.8); Monocytes % 9.4 % (1.7-12.7); Neutrophils # 4.4 10*3/uL (1.4-7.4); Neutrophils % 52.6 % (38.7-73.9); Platelet Count 291 T/CUMM (130-400); Red Blood Count 4.14 MC/CUMM (3.8-5.5); Red Cell Distribution Width 14.6 % (9.3-17.3); White Blood Count 8.3 T/CUMM (4-12)
[2017-02-06] MEDS: ENOXAPARIN 40 MG/0.4 ML SYRINGE SUBCUT SCH (05:12)
[2017-02-06 05:23] LABS: Calcium 8.2 MG/DL (8.5-10.1); Magnesium 2.4 MG/DL (1.8-2.4); Osmolality,Calculated 285.3 MOS/KG (273-304); Potassium 3.5 MMOL/L (3.5-5.1)
--- NOTE | 2017-02-06 08:09 | Cardiology Progress Note ---
Cardiology - PN: Subj Interval history: Cardiology note Status post recent anterior infarction with congestive heart failure. Status post LAD stent. Ejection fraction 25%. No pain. Telemetry shows steady sinus rhythm. O2 sat 95% on 2 L cannula. Blood pressure 106/70 in the left arm by me. Regular rhythm no murmur or gallop. Decreased breath sounds but clear. Left carotid bruit. Right groin soft and dry. No bruit or hematoma. Distal pulses 2+. Lab data today Sodium 141 potassium 3.5 chloride 99 CO2 34 BUN 21 creatinine 0.90 Glucose 136 magnesium 2.4 Impression Status post left ankle fracture repair January 21, 2016 in [place] Recent anterior infarction with congestive heart failure Ischemic cardia myopathy EF 25% Status post proximal LAD stent Moderate 60% RCA stenosis Type 2 diabetes Chronic hypertension Status post stroke 2004 Active smoker Hyperlipidemia Plan No stooping straining or heavy lifting for 1 week to minimize potential groin problems Aspirin 81 mg daily and Brilinta 90 mg twice daily Carvedilol 3.125 mg twice daily Spironolactone 25 mg daily Valsartan 80 mg daily Atorvastatin 80 mg daily Sublingual nitro as needed No smoking. Patient has been fully informed that continued smoking does increase her chance for another heart attack or stroke and for aggressive disease progression. LifeVest. Will find out today if insurance will cover. Office visit with EKG and carotid duplex in 3 weeks Home okay with me Exam (Progress Note) - Constitutional Vitals: Period Temp Pulse Resp BP Sys/[place] Pulse Ox Last 24 Hr 96.1 F-97.9 F 74-89 16-20 104-118/56-68 87-98 Result/EKG - Labs CBC & BMP: 02/06/17 04:03 02/06/17 04:03 Labs: Laboratory Results - last 24 hr 02/05/17 02/06/17 02/06/17 12:32 04:03 04:03 WBC 8.3 RBC 4.14 Hgb 11.8 L Hct 36.8 MCV 88.9 MCH 29 MCHC 32.1 RDW 14.6 Plt Count 291 MPV 9.9 Neut % (Auto) 52.6 Lymph % (Auto) 34.0 [place] % (Auto) 9.4 Eos % (Auto) 3.1 Baso % (Auto) 0.5 Neut # (Auto) 4.4 Lymph # (Auto) 2.8 [place] # (Auto) 0.8 Eos # (Auto) 0.3 Baso # (Auto) 0.0 Immature Gran % 0.4 Nucleated RBC % 0.0 Immature Gran # 0.03 Nucleated RBCs # 0.00 Sodium 139 141 Potassium 3.7 3.5 Chloride 96 L 99 Carbon Dioxide 36 H 34 H Anion Gap 10.7 11.5 BUN 26 H 21 H Creatinine 0.90 0.90 GFR Calculation 76 76 BUN/Creatinine Ratio 28.00 H 23.00 H Glucose 126 H 136 H Calculated Osmolality 283.5 285.3 Calcium 9.4 8.2 L Magnesium 2.5 H 2.4 Specialty Discharge - Follow Up or Referrals
[2017-02-06 08:21] VITALS: BP 121/55
[2017-02-06] MEDS: INSULIN LISPRO 100 UNIT/ML SUBCUT SCH (08:41)
[2017-02-06] MEDS ORDERED: POTASSIUM CHLORIDE 20 MEQ TABLET PO SCH (09:00)
[2017-02-06] MEDS ORDERED: SPIRONOLACTONE 25 MG TABLET PO SCH (09:00)
[2017-02-06] MEDS: PANTOPRAZOLE 40 MG TABLET PO SCH (09:28)
[2017-02-06] MEDS: CARVEDILOL 3.125 MG TABLET PO SCH (09:28)
[2017-02-06] MEDS: FUROSEMIDE 40 MG TABLET PO SCH (09:28)
[2017-02-06] MEDS: ASPIRIN EC 81 MG TABLET PO SCH (09:28)
[2017-02-06] MEDS: CITALOPRAM 20 MG TABLET PO SCH (09:28)
[2017-02-06] MEDS: VALSARTAN 80 MG TABLET PO SCH (09:28)
[2017-02-06] MEDS: TICAGRELOR 90 MG TABLET PO SCH (09:28)
--- NOTE | 2017-02-06 10:25 | Discharge Summary ---
Hospital Course - Hospital Course Hospital Course: The patient was admitted to the hospital with shortness of breath due to pulmonary edema. The patient had good response to diuresis. Echocardiogram revealed reduced ejection fraction. The patient cardiology consultation as well as coronary arteriogram. The patient had PTCA to the left anterior descending artery. The patient is now discharged home in improved condition. Dr. Jurado recommended LifeVest but there was difficulty with insurance approval. The patient will follow up with Dr. Jurado in the office on medications as seen in the discharge medication list. On the date of discharge , chest is clear and heart has regular rate and rhythm. 32 minutes were required for preparation of discharge documents, examination, and coordination of care with Dr. Jurado. - Time spent with patient Time with patient DS: Greater than 30 minutes Diagnosis - Discharge Diagnosis (1) HTN (hypertension) Status: Chronic (2) Diabetes mellitus Status: Chronic (3) Congestive heart failure Status: Acute Specialty Discharge - Follow Up or Referrals Follow up with: Luis Alberto Jurado MD [Physician] - 2 Weeks (BMP, MG, CBC, AND EKG) Discharge Plan - Discharge Data Disposition: Disch To Home/Self Care Condition at Discharge: Stable Discharge Diet: diabetic diet Activity: resume usual activities as tolerated - Discharge Medications New Atorvastatin [Lipitor] 80 mg PO BEDTIME #30 tablet Carvedilol [Coreg] 3.125 mg PO BID #60 tablet Furosemide Tab [Lasix Tab] 40 mg PO DAILY PRN #30 tablet PRN Reason: edema Ticagrelor [Brilinta] 90 mg PO BID #60 tablet Spironolactone [Aldactone] 25 mg PO DAILY #30 tablet Continue Aspirin [Ecotrin] 81 mg PO DAILY #30 tablet Valsartan 80 mg PO DAILY #30 tablet No Action Escitalopram [Lexapro] 10 mg PO BEDTIME metFORMIN [Glucophage] 250 mg PO BID W/MEALS Citalopram Hydrobromide [Celexa] 10 mg PO DAILY oxyCODONE/ACETAMINOPHEN 5-325 [Percocet 5-325] 1 tablet PO DAILY PRN PRN Reason: Pain - Follow Up or Referral Follow Up: Luis Alberto Jurado MD [Physician] - 2 Weeks (BMP, MG, CBC, AND EKG) - Forms/Instructions Instructions: Myocardial Infarction (GEN), Left Heart Catheterization (DC), How to Stop Smoking (GEN), Heart Healthy Diet (GEN), Cigarette Smoking and Your Health (GEN), Coronary Intravascular Stent Placement, Accreditation Coordinator (GEN) Exam - Constitutional Vitals: Period Temp Pulse Resp BP Sys/[place] Pulse Ox Last 24 Hr 96.1 F-97.9 F 20-89 16-20 109-121/55-68 87-98 Discharge Results Procedures and tests throughout hospitalization: Pending Orders 02/02/17 19:56 Blood Culture Stat Labs on day of discharge: Labs from last 24 hours 02/06/17 02/06/17 02/06/17 07:21 04:03 04:03 WBC 8.3 RBC 4.14 Hgb 11.8 L Hct 36.8 MCV 88.9 MCH 29 MCHC 32.1 RDW 14.6 Plt Count 291 MPV 9.9 Neut % (Auto) 52.6 Lymph % (Auto) 34.0 [place] % (Auto) 9.4 Eos % (Auto) 3.1 Baso % (Auto) 0.5 Neut # (Auto) 4.4 Lymph # (Auto) 2.8 [place] # (Auto) 0.8 Eos # (Auto) 0.3 Baso # (Auto) 0.0 Immature Gran % 0.4 Nucleated RBC % 0.0 Immature Gran # 0.03 Nucleated RBCs # 0.00 Sodium 141 Potassium 3.5 Chloride 99 Carbon Dioxide 34 H Anion Gap 11.5 BUN 21 H Creatinine 0.90 GFR Calculation 76 BUN/Creatinine Ratio 23.00 H Glucose 136 H POC Glucose 145 H Calculated Osmolality 285.3 Calcium 8.2 L Magnesium 2.4 02/05/17 02/05/17 02/05/17 19:21 16:00 12:32 WBC RBC Hgb Hct MCV MCH MCHC RDW Plt Count MPV Neut % (Auto) Lymph % (Auto) [place] % (Auto) Eos % (Auto) Baso % (Auto) Neut # (Auto) Lymph # (Auto) [place] # (Auto) Eos # (Auto) Baso # (Auto) Immature Gran % Nucleated RBC % Immature Gran # Nucleated RBCs # Sodium 139 Potassium 3.7 Chloride 96 L Carbon Dioxide 36 H Anion Gap 10.7 BUN 26 H Creatinine 0.90 GFR Calculation 76 BUN/Creatinine Ratio 28.00 H Glucose 126 H POC Glucose 212 H 129 H Calculated Osmolality 283.5 Calcium 9.4 Magnesium 2.5 H 02/05/17 11:23 WBC RBC Hgb Hct MCV MCH MCHC RDW Plt Count MPV Neut % (Auto) Lymph % (Auto) [place] % (Auto) Eos % (Auto) Baso % (Auto) Neut # (Auto) Lymph # (Auto) [place] # (Auto) Eos # (Auto) Baso # (Auto) Immature Gran % Nucleated RBC % Immature Gran # Nucleated RBCs # Sodium Potassium Chloride Carbon Dioxide Anion Gap BUN Creatinine GFR Calculation BUN/Creatinine Ratio Glucose POC Glucose 149 H Calculated Osmolality Calcium Magnesium Preliminary micro results at discharge 02/02/17 19:56 Blood Culture - Preliminary Blood No growth at 3 days 02/02/17 19:56 Blood Culture - Preliminary Blood No growth at 3 days DS: Provider Date of admission: 02/02/17 20:11 Primary care physician: Olayinka Jerome Attending physician on admission: Diego Delvalle DO Consults: 02/02/17 21:03 Consult to Physician [CONS] Routine Comment: elevated troponin, chf Consulting Provider: Cardiology - [facility] 02/02/17 21:58 Consult to Pastoral Services [CONS] Routine Comment: Pastoral Screen: Request Aircraft Instrument Mechanic Visit Pastoral Screen Source of Request: Patient 02/04/17 10:36 Consult to Cardiac Rehabilitation [CONS] Routine Reason for Cardiac Rehabilitation: Risk Factor Modification 02/04/17 12:17 Consult to Cardiac Rehabilitation [CONS] Routine Reason for Cardiac Rehabilitation: Risk Factor Modification Discharging clinician: Emmett Waters MD
== END 2017-02-06 11:57 | disposition home or self-care (01) | DRG 246 ==
LOC: EDUNIT# → EDBD → N.ED 18:54 → SUATTDRO 20:11 → N.EDINP 20:11 → N.TELES 20:40
PROVIDERS: ADMIT Internal Medicine; ATTEND Internal Medicine
PROC: CLCCHCL (ICD-10-PCS; 2017-02-04 10:45)

== ENCOUNTER 2017-02-07 13:40 | Observation (INO) ==
--- NOTE | 2017-02-07 14:05 | Emergency Department Note ---
Arrival - Arrival Chief Complaint: Chest Pain ED Nursing Triage Note: was dcd from here a few days ago s/p having stent placed. pt was transfered from [facility] to the er for dr jurado to come see Mode of Arrival: Stretcher Limitations: No Limitations Source: Patient Time Seen by Provider: 02/07/17 13:59 - History of Present Illness HPI Narrative: This 66-year-old white female presents 24 hours post discharge for PTCA of the left anterior descending artery on transfer from [facility] for complaints of severe chest pain, shortness of breath, diaphoresis, and nausea onset approximately 3 hours ago. Initial workup at [facility] revealed a bump in troponin to 0.45 and an elevated BNP of 2700. EKG at the time revealed sinus rhythm at 86 with normal AL interval and QRS duration with nonspecific ST changes, was left atrial enlargement, left axis deviation, and evidence of old septal IA. Currently after medications rendered at [facility] the patient is in no pain at this time nor she nauseated. Onset (ago): hour(s) (Patient presents 3 hours post onset of symptom) Allergies/Adverse Reactions: Allergies Allergy/AdvReac Type Severity Reaction Status Date / Time Hydromorphone [From Dilaudid] Allergy ITCHING Verified 03/15/15 10:05 Home Medications: Home Medications Medication Instructions Recorded Confirmed Type Escitalopram [Lexapro] 10 mg PO BEDTIME 02/02/17 02/07/17 History metFORMIN [Glucophage] 250 mg PO BID W/MEALS 02/02/17 02/07/17 History oxyCODONE/ACETAMINOPHEN 5-325 1 tablet PO DAILY PRN 02/02/17 02/07/17 History [Percocet 5-325] Aspirin [Ecotrin] 81 mg PO DAILY #30 tablet 02/06/17 02/07/17 Rx Atorvastatin [Lipitor] 80 mg PO BEDTIME #30 tablet 02/06/17 02/07/17 Rx Carvedilol [Coreg] 3.125 mg PO BID #60 tablet 02/06/17 02/07/17 Rx Furosemide Tab [Lasix Tab] 40 mg PO DAILY PRN #30 tablet 02/06/17 02/07/17 Rx Spironolactone [Aldactone] 25 mg PO DAILY #30 tablet 02/06/17 02/07/17 Rx Ticagrelor [Brilinta] 90 mg PO BID #60 tablet 02/06/17 02/07/17 Rx Valsartan 80 mg PO DAILY #30 tablet 02/06/17 02/07/17 Rx Review of System - Review of System 12 point system: reviewed and no additional remarkable complaints except as stated - Review of System Constitutional: Present: as per HPI Respiratory: Present: as per HPI Cardiovascular: Present: as per HPI Gastrointestinal: Present: as per HPI Medical,Surgical,& Family Hx - Medical History Cardio: History of: Hypertension (was off meds for over one year until yesterday ) No history of: Aneurysm, Cardiac Dysrhythmia, CHF, CAD, [place] Neurology: History of: Cerebrovascular Accident No history of: Seizures Endocrine: History of: Diabetes Mellitus (NIDDM) (had been off meds due to weight loss for about one year until yesterday), Dyslipidemia Gastrointestinal: History of: Hemorrhoids Musculoskeletal: History of: Back/Neck Problems - Surgical History HEENT Surgeries: Surgical HX of: Eye Surgery, Tonsilectomy & Adenoidectomy Abdominal Surgeries: Surgical HX of: Appendectomy, Cholecystectomy Reproductive Surgeries: Surgical HX of;: Breast Surgery, Hysterectomy Orthopedic Surgeries: Surgical HX of;: Spinal Surgery (ruptured disk) - Family History Family History: Reports;: Family Cancer, Family Diabetes, Family Hypertension - Social History Smoking Status: Never smoker Frequency of Alcohol Use: None Type of Drug Use: None Exam Physical Examination: GENERAL: Chronically ill-appearing elderly white female in no acute distress. HEENT: Normocephalic. No trauma. Moist mucous membranes. EOMI. PERRLA. ENT NML NECK: Supple. No adenopathy. CARDIAC: Regular. No murmurs. Heart rate 81 CHEST: Clear to auscultation. No respiratory distress. O2 sat 94% ABDOMEN: Soft. Nontender. Active bowel sounds. EXTREMITIES: No trauma. Normal ROM. No pedal edema. Left lower extremity in postop splint SKIN: No diaphoresis. No rash. NEURO: Alert. Neuro intact. No focal deficits. Vital Signs: Vital Signs Temperature 98.0 F 02/07/17 13:40 Pulse Rate 81 02/07/17 13:40 Respiratory Rate 02/07/17 14:06 Blood Pressure 126/71 02/07/17 13:40 O2 Sat by Pulse Oximetry 94 L 02/07/17 13:40 Course - Reevaluation(s) Reevaluation #1: Patient expectant of admission - Consultations Consultation #1: Dr. Jurado will admit the patient for further evaluation treatment. Results - Labs Lab Results: I have reviewed the patients labs Labs: trop 0.323, bnp 444 - Impressions EKG: Sinus rhythm at 72 with normal AL interval and QRS duration. Old anterior IA. Nonspecific ST changes. No acute injury pattern. Disposition Clinical Impression: Abnormal cardiac enzymes, Coronary atherosclerosis, STATUS POST RECURRENT STENTING, Congestive failure Case discussed with: patient, patient's family Disposition: Still a Patient Condition: Guarded Time of Disposition: 15:37
[2017-02-07 14:49] LABS: Troponin I Only 0.323 NG/ML (0.00-0.045)
[2017-02-07] MEDS ORDERED: ZALEPLON 5 MG CAPSULE PO PRN (15:10)
[2017-02-07] MEDS ORDERED: DOCUSATE SODIUM 100 MG CAPSULE PO PRN (15:10)
[2017-02-07] MEDS ORDERED: ONDANSETRON 4 MG/2 ML VIAL IV PRN (15:10)
[2017-02-07] MEDS ORDERED: MAGNESIUM SULF RIDER 4 GM in PREMIX 1 EACH IV PRN (15:13)
[2017-02-07] MEDS ORDERED: MAGNESIUM SULF RIDER 2 GM in PREMIX 1 EACH IV PRN ×2 (15:13→15:31)
--- NOTE | 2017-02-07 15:13 | Ultrasound Report ---
History: Lower extremity edema and pain Date: 02/07/2017 Study: Bilateral lower extremity color-flow venous Doppler study Comparison exam: No previous Color Doppler, wave form analysis, and compression analysis of the deep veins of both lower extremities from the common femoral vein level through the popliteal vein level shows that the veins are readily compressible. There is no abnormal intraluminal material to suggest thrombus. Waveform analysis is unremarkable. Ultrasound images were captured and archived Impression: Normal bilateral lower extremity color flow venous Doppler study. No evidence of DVT on either side PROCEDURE INTERPRETED AT [facility] DEPARTMENT OF RADIOLOGY Final Report Signed by: Dr. Doretha Archer
[2017-02-07] MEDS ORDERED: diphenhydrAMINE CAP 25 MG CAPSULE PO ONE (15:31)
[2017-02-07] MEDS ORDERED: POTASSIUM CHLORIDE RIDER 10 MEQ in PREMIX 1 EACH IV PRN (15:31)
[2017-02-07] MEDS ORDERED: DIAZEPAM 5 MG TABLET PO ONE (15:31)
--- NOTE | 2017-02-07 15:37 | XRay Report ---
XR chest 1V Indication: Shortness of breath. Chest one view: Heart size and mediastinal contour are normal. There is diffuse mild parabronchial thickening present. No focal infiltrates are shown. Pleural spaces are clear. Bones are intact. Impression: Mild airways disease such as bronchitis or viral syndrome. No focal pneumonia. PROCEDURE INTERPRETED AT [facility] DEPARTMENT OF RADIOLOGY Final Report Signed by: Jed Velazquez M.D.
[2017-02-07] MEDS ORDERED: LIDOCAINE 1% 20 ML VIAL ONE (15:40)
[2017-02-07] MEDS ORDERED: HEPARIN/NACL 0.9% 2 UNITS/ML 1,000 ML IV ONE (15:40)
--- NOTE | 2017-02-07 15:44 | Cardiology History & Physical ---
<Kerry Andrade E - Last Filed: 02/07/17 15:32> Assessment and Plan - Time spent with patient Time spent with patient: Greater than 30 minutes Time spent discussing smoking cessation with patient: 3 to 10 minutes (1) Cerebrovascular accident Status: Resolved Assessment and plan: SEE PLAN OF CARE LISTED BELOW Current Visit: No (2) HTN (hypertension) Status: Chronic Assessment and plan: SEE PLAN OF CARE LISTED BELOW Current Visit: No Qualifiers: Hypertension type: essential hypertension Qualified Code(s): I10 - Essential (primary) hypertension (3) Diabetes mellitus Status: Chronic Assessment and plan: SEE PLAN OF CARE LISTED BELOW Current Visit: No Qualifiers: Diabetes mellitus type: type 2 Diabetes mellitus complication status: with circulatory complication Diabetes mellitus complication detail: with other circulatory complications (4) Chest pain Status: Acute Assessment and plan: SEE PLAN OF CARE LISTED BELOW Current Visit: No (5) Dyslipidemia Status: Chronic Assessment and plan: SEE PLAN OF CARE LISTED BELOW Current Visit: No (6) Tobacco abuse Status: Chronic Assessment and plan: SEE PLAN OF CARE LISTED BELOW Current Visit: No (7) Ischemic cardiomyopathy Status: Acute Assessment and plan: SEE PLAN OF CARE LISTED BELOW Current Visit: No (8) CAD (coronary artery disease) Status: Chronic Assessment and plan: SEE PLAN OF CARE LISTED BELOW Current Visit: No Qualifiers: Coronary Disease-Associated Artery/Lesion type: [place] artery [place] vs. 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 Etienne, 66WF, with recent diagnosis of CAD, underwent PCI of the proximal mid LAD February 04, 2017. Right coronary artery revealed a 50-60% stenosis, EF 25% . Ischemic cardiomyopathy is a new diagnosis as well. Patient tolerated the cardiac catheterization without problem. She was discharged home in stable condition. Patient reports she had chest pain throughout the afternoon of discharge worsening this morning. She describes the chest discomfort as "sharp and squeezing" sensation in the middle chest area radiating through to her back and right jaw. It was occurring at rest but worsened with exertion. It has lasted various amounts of time including 1-2 minutes up to 5-10 minutes. Chest discomfort was alleviated in the ER when she received various medications including: Morphine, nitro paste, GI cocktail. She has not missed a dose of Brilinta or Aspirin and took these medications this morning. She was transferred to [place] ED from [facility] in [place], [place] for further management. Troponin at discharge 1.160, on arrival to the ER 0.323. Chest x-ray did not reveal an acute event, EKG revealed no STEMI or NSTEMI. Patient has undergone venous ultrasound of left lower extremity today without DVT noted. CT chest performed approximately 4 days ago revealed no evidence of PTE. Patient is being kept NPO and I will further discuss with Dr. Jurado and await additional recommendations. ASSESSMENT/PLAN: 1. CHEST PAIN -patient symptoms are described as similar to the same type of discomfort she had prior to receiving stent. It is occurring primarily with exertion, radiating to her jaw and through to her back. Cardiac biomarkers are trending down from prior to discharge. Patient will be admitted and additional workup will ensue including possibly cardiac catheterization 2. ICM -EF 25%. No evidence of CHF during this admission. Patient was not a candidate for LifeVest as her insurance declined. 3. KNOWN CAD - continue aspirin, Brilinta, beta-jesse, ARB, lipid-lowering agent. 4. HYPERTENSION - will adjust medications accordingly during hospital stay 5. DYSLIPIDEMIA - no need to repeat fasting lipid profile as there is a recent panel on file. Continue lipid-lowering agent. 6. DIABETES - continue current plan of care. 7. TOBACCOISM -reinforced the continued merits of tobacco cessation. She has not required cigarettes for approximately 5 days. 8. HISTORY OF CVA - history of CVA approximately 2 years ago. Continue current plan of care. [facility] report February 04, 2017: Findings: 1. The left main artery is angiographically normal. 2. The left anterior descending artery extends to the apex and wraps around. There is a complex discrete stenosis that begins at the origin of the first diagonal artery and extends just past the second diagonal artery with up to 95% stenosis. Thereafter the vessel is small caliber, approximately 1 mm in the mid to distal segment. 3. There is not an intermediate ramus branch. 4. The circumflex artery is free of significant disease. It gives rise to 2 marginal branches, the first of which has a high origin that could be considered a ramus branch. 5. The right coronary artery is a dominant vessel. There is 50-60% and graphic stenosis in the mid segment that does not appear to be flow-limiting. 6. Ejection fraction is 25 % with akinesis of the mid to distal anterior wall, apex and distal inferior wall. 7. Mild mitral regurgitation. 8. No significant aortic stenosis. 9. The right iliac artery has mild to moderate atheromatous disease, but is without evidence of vascular complications. PCI: The patient was anticoagulated with Angiomax. After appropriate anticoagulation was confirmed with an ACT measurement, a guiding 6 Russian EBU 3.5 catheter was advanced to the left main artery. A Chogger 180 cm wire was used to traverse the left anterior descending artery. A apex 2 x 12 mm balloon was advanced to the site of stenosis and angioplasty was performed at 14 [address]. Thereafter, a synergy 2.5 x 20 mm drug-eluting stent was advanced into the vessel but would not advance through the site of angioplasty. The stent was then removed and the apex 2 x 12 mm balloon was reintroduced, with repeat angioplasty performed at the first diagonal artery at 14 [address]. The stent was then reintroduced, advanced to the site of angioplasty, and successfully deployed at 18 [address]. Afterwards, a non-compliant Quantum apex 2.75 x 15 mm balloon was advanced into the stented segment and post-dilation was performed at 13 [address]. Satisfactory angiographic result was obtained with appropriate step- up proximally and distally, and no evidence of residual vascular complications. Preoperatively there is 95% stenosis with JOHANNA-3 flow. Postoperatively there is 0% residual stenosis at the treated segment with JOHANNA-3 flow. Home Medications Medication Instructions Recorded Confirmed Type Escitalopram [Lexapro] 10 mg PO BEDTIME 02/02/17 02/07/17 History metFORMIN [Glucophage] 250 mg PO BID W/MEALS 02/02/17 02/07/17 History oxyCODONE/ACETAMINOPHEN 5-325 1 tablet PO DAILY PRN 02/02/17 02/07/17 History [Percocet 5-325] Aspirin [Ecotrin] 81 mg PO DAILY #30 tablet 02/06/17 02/07/17 Rx Atorvastatin [Lipitor] 80 mg PO BEDTIME #30 tablet 02/06/17 02/07/17 Rx Carvedilol [Coreg] 3.125 mg PO BID #60 tablet 02/06/17 02/07/17 Rx Furosemide Tab [Lasix Tab] 40 mg PO DAILY PRN #30 tablet 02/06/17 02/07/17 Rx Spironolactone [Aldactone] 25 mg PO DAILY #30 tablet 02/06/17 02/07/17 Rx Ticagrelor [Brilinta] 90 mg PO BID #60 tablet 02/06/17 02/07/17 Rx Valsartan 80 mg PO DAILY #30 tablet 02/06/17 02/07/17 Rx Allergies Allergy/AdvReac Type Severity Reaction Status Date / Time Hydromorphone [From Dilaudid] Allergy ITCHING Verified 03/15/15 10:05 Review of systems: REVIEW OF SYSTEMS: - Constitutional Constitutional: Present: Fatigue. Absent: syncope, anorexia, night sweats - EENT Eyes: Absent: blurry vision, loss of vision, diplopia Ears: Absent: decreased hearing, ear pain, ear discharge - Cardiovascular Cardiovascular: Present: chest pain with exertion, chest pain at rest, dyspnea on exertion, left lower extremity edema. Denies palpitations. Absent: chest pain with deep breath, claudication, - Respiratory Respiratory: Present: URBINA, denies cough. Absent: wheezing, hemoptysis, change in phlegm color - Gastrointestinal Gastrointestinal: Denies: constipation. Absent: abdominal pain, hematemesis, hematochezia, melena, change in bowel habits, nausea - Genitourinary Genitourinary: Absent: difficulty urinating, dysuria, urinary hesitancy, flank pain - Musculoskeletal Musculoskeletal: Present: back pain Absent: joint swelling, muscle cramps, muscle weakness - Neurological Neurological: Present: Altered gait without frequent falls. Absent: dizziness, hemiparesis - Psychiatric Psychiatric: Absent: anxiety, depression, difficulty concentrating - Endocrine Endocrine: Absent: cold intolerance, heat intolerance, polyuria, polyphagia, polydipsia - Hematologic/Lymphatic Hematologic/Lymphatic: Present: easy bruising. Absent: easy bleeding -Integumentary Integumentary: Absent: lesions, rashes, skin breakdown Medical,Surgical,& Family Hx - Medical History Cardio: History of: Hypertension (was off meds for over one year until yesterday ) No history of: Aneurysm, Cardiac Dysrhythmia, CHF, CAD, [place] Neurology: History of: Cerebrovascular Accident No history of: Seizures Endocrine: History of: Diabetes Mellitus (NIDDM) (had been off meds due to weight loss for about one year until yesterday), Dyslipidemia Gastrointestinal: History of: Hemorrhoids Musculoskeletal: History of: Back/Neck Problems - Surgical History HEENT Surgeries: Surgical HX of: Eye Surgery, Tonsilectomy & Adenoidectomy Abdominal Surgeries: Surgical HX of: Appendectomy, Cholecystectomy Reproductive Surgeries: Surgical HX of;: Breast Surgery, Hysterectomy Orthopedic Surgeries: Surgical HX of;: Spinal Surgery (ruptured disk) - Family History Family History: Reports;: Family Cancer, Family Diabetes, Family Hypertension - Social History Smoking Status: Former smoker Have you smoked in the last 12 months: Yes Time spent discussing smoking cessation with patient: 3 to 10 minutes Frequency of Alcohol Use: None Type of Drug Use: None Marital Status: Lives With:: Alone Functional capacity: independent ambulation Cardiology Physical Exam - Constitutional Vitals: Vital Signs Temp Pulse Resp BP Pulse Ox 98.0 F 81 17 126/71 94 L 02/07/17 13:40 02/07/17 13:40 02/07/17 14:06 02/07/17 13:40 02/07/17 13:40 Intake and Output 02/06/17 02/07/17 02/07/17 23:59 07:59 15:59 Other: Weight 85.275 kg Patient Weight 02/07/17 23:59 Weight 85.275 kg Exam: General: [Appears well with no apparent distress.] [Pleasant and cooperative. ] [Appears comfortable.] HEENT: [PERRL, normocephalic, atraumatic. Mucous membranes moist. No jaundice noted. Conjunctiva moist and clear, sclerae anicteric] Neck: No JVD/HJR, no thyromegaly or lymphadenopathy noted. No carotid bruit appreciated Cardiac: [Regular rate and rhythm.] [No obvious murmur rub or gallop.] Lungs: [Clear to auscultation without accessory muscle use to assist the respiratory pattern.] Oxygen in use via nasal cannula Abdomen: Soft, bowel sounds normoactive. Nontender and nondistended. No abdominal bruit or thrill noted. No masses noted. Musculoskeletal: No fluid collection. Decreased range of motion is noted. Extremities: Right groin soft and free of bruit. Mild firmness noted. No clubbing, cyanosis noted. [Trace left lower extremity edema noted.] Upper extremity pulses 2+. Lower extremity pulses 2+. Boot to left lower extremity. Capillary refill less than 3 seconds. Skin: No unusual lesions or rashes. No skin breakdown appreciated. Neuro: Awake, alert and oriented 3. Moves all extremities well without hemiparesis or paralysis. No essential tremor is appreciated. Result/EKG - Labs Lab Results: I have reviewed the past 24 hour labs Labs: Laboratory Results - last 24 hr 02/07/17 02/07/17 14:10 14:10 Total Creatine Kinase 83 CK-MB (CK-2) 1.5 Troponin I 0.323 H B-Natriuretic Peptide 444 H - Diagnostic Findings Procedure: Chest x-ray: report reviewed by me, Ultrasound: report reviewed by me - EKG EKG results: interpreted by me EKG shows: sinus rhythm <Luis Alberto Jurado - Last Filed: 02/07/17 16:19> History of Present Illness History of present illness: Cardiology addendum Status post recent anterior NV with CHF. Status post cardiac cath with LAD stent by Dr. Caldera 2 days ago. Ejection fraction 25% with severe anteroapical hypokinesis/akinesis. Also has moderate proximal dominant right coronary stenosis 60% or more Troponin and BNP level continued to trend downward Diabetic Taking aspirin Brilinta and statin Plan Cardiac cath. Discussed with daughter Nadine and patient. All agree to proceed. Cardiology Physical Exam - Constitutional Vitals: Vital Signs Temp Pulse Resp BP Pulse Ox 98.0 F 81 17 126/71 94 L 02/07/17 13:40 02/07/17 13:40 02/07/17 14:06 02/07/17 13:40 02/07/17 13:40 Intake and Output 02/07/17 02/07/17 02/07/17 07:59 15:59 23:59 Other: Weight 85.275 kg Patient Weight 02/07/17 23:59 Weight 85.275 kg Result/EKG - Labs Labs: Laboratory Results - last 24 hr 02/07/17 02/07/17 14:10 14:10 Total Creatine Kinase 83 CK-MB (CK-2) 1.5 Troponin I 0.323 H B-Natriuretic Peptide 444 H
[2017-02-07] MEDS ORDERED: FUROSEMIDE 40 MG TABLET PO PRN (15:48)
[2017-02-07] MEDS ORDERED: HYDROmorphone 2 MG/1 ML VIAL ONE (15:59)
[2017-02-07] MEDS ORDERED: MIDAZOLAM 2 MG/2 ML VIAL ONE (15:59)
--- NOTE | 2017-02-07 16:16 | History and Physical Update ---
Sedation H&P Update - History and Physical H&P was reviewed, the patient examined and there: are no changes in the patients condition since last H&P was completed. - Dictation Physical: refer to H&P completed by admitting physician - Physical Exam Mental Status: alert and oriented Heart: regular rate and rhythm Lung: clear to auscultation Abdomen: within normal limits Vitals: within normal limits - Sedation Plan for Sedation: moderate Patient Consent: Procedure disscussed with patient and patinet has consented., Risks and benefits were discussed with patient,including infection,, bleeding, injury to surrounding structures, seizure, temporary nerve, Patient understands and accepts potential risks/benefits and agrees to, proceed. ASA Class: II Airway Assessment: Class II: Soft palate, uvula, fauces visible
[2017-02-07] MEDS ORDERED: BIVALIRUDIN 250 MG VIAL IV ONE (16:31)
[2017-02-07] MEDS ORDERED: TICAGRELOR 90 MG TABLET ONE (16:52)
[2017-02-07] MEDS ORDERED: GLUCAGON 1 MG VIAL IM PRN (17:14)
[2017-02-07] MEDS ORDERED: DEXTROSE 50% 25 GM/50 ML VIAL IV PRN (17:14)
[2017-02-07] MEDS ORDERED: ACETAMINOPHEN 325 MG TABLET PO PRN (17:14)
--- NOTE | 2017-02-07 17:14 | Cardiac Catheterization ---
Date of Procedure:: 02/07/17 Pre-op Diagnosis: Chest pain CAD cardiomyopathy Post-op diagnosis: same Procedure: Cardiac catheterization procedure note #1 left heart catheterization #2 selective coronary angiography #3 left ventriculography was not performed to conserve dye #4 successful proximal RCA stent Omnipaque was used for the procedure Description of procedure Following sterile preparation draping of the left groin local anesthesia was achieved by infiltration 1% Xylocaine. Using a Cook needle the right femoral artery was cannulated and a #6 sheath was inserted. A 6 [place] left Lucia cath was introduced and advanced into the left ventricle and the end-diastolic pressure was recorded. A pullback recording made across phytic valve. The left main was then cannulated and selective coronary angiography was performed in several BANUELOS and TANZANIAN projections. The catheter change for a 6 [place] right Amplatz catheter and right coronary angiography was performed in the TANZANIAN projection only. The catheter change for a 6 [place] right Lucia guiding catheter and the right coronary was recannulated. The patient was bolused with Angiomax and placed on infusion per protocol. A pro-water flex wire was introduced and advanced the distal right coronary. Direct stenting was performed using a 4.0 x 20 mm synergy drug-eluting stent. The maximum inflation pressure was 14 harmeet for 30 seconds, creating a 4.22 mm lumen. The balloon was then deflated and brought back into the guiding catheter leaving only the guidewire across the lesion. Repeat angiograms a widely patent vessel with mild residual narrowing, no dissection and brisk runoff. The guidewire was removed. Repeat angiography again confirmed a widely patent vessel with brisk runoff. The guidewire and sheath were then removed and the femoral arch [place] site was sealed percutaneous a minx closure device with prompt cessation of bleeding and prompt return of femoral and foot pulses. The patient was transferred back to telemetry in stable condition. Hemodynamic data Aortic pressure 125/62 mean of 90 Left ventricle 1 2 12/26 Selective coronary angiography The left main trunk is widely patent bifurcates. The LAD is a large vessel that wraps the apex. The proximal stent site at the first septal healthcare project manager is widely patent. The small first diagonal branch has an 80% ostial narrowing. The circumflex system is patent and has mild disease only. The dominant right coronary has a 70% proximal stenosis. Left ventriculography was not performed to conserve dye. Conclusions Increased LVEDP 18 LV gram was not done to conserve dye Left main trunk-patent LAD-widely patent proximal stent site First diagonal-80% ostial small vessel Circumflex system-patent with mild disease only Dominant right coronary-70% proximal successful proximal RCA stent using a 4.0 x 20 mm synergy drug-eluting stent. The maximum patient pressure was at 14 temperatures for 30 seconds, creating a 4.22 mm lumen. Excellent angiographic result obtained.= Disposition The patient status post recent anterior infarction with congestive heart failure. She underwent approximately stent February 04, 2017. She returned with recurrent chest pain. The LAD stent site is widely patent. She underwent stenting of the proximal dominant right coronary artery using a 4.0 x 20 member Synergy drug-eluting stent, postdilated 4.22 mm lumen. Good result obtained. She will remain on aspirin Brilinta and statin therapy and continue normal saline hydration. BMP and CPK troponin a.m. Cine pictures were reviewed with her daughter Nadine. In addition, she will require aggressive lifestyle change risk factor modification. Implants: Successful proximal RCA stent 4.0 x 20 mm Synergy drug eluting stent postdilated 16 harmeet for 30 seconds, creating a 4.22 mm lumen. Good result obtained. Anesthesia: moderate conscious sedation Surgeon / Physician: Luis Alberto Jurado Estimated blood loss: minimal Specimens: none sent Condition: stable Disposition: floor - Medications / Follow-up
[2017-02-07 20:48] LABS: Troponin I Only 0.353 NG/ML (0.00-0.045)
[2017-02-07] MEDS: oxyCODONE/ACETAMINOPHEN 5-325 MG TABLET PO PRN (21:30)
[2017-02-07] MEDS: ESCITALOPRAM 10 MG TABLET PO SCH (21:31)
[2017-02-07] MEDS: TICAGRELOR 90 MG TABLET PO SCH (21:31)
[2017-02-07] MEDS: ATORVASTATIN 80 MG TABLET PO SCH (21:31)
[2017-02-07] MEDS: CARVEDILOL 3.125 MG TABLET PO SCH (21:32)
[2017-02-08 06:05] LABS: Basophils % 0.3 % (0.0-0.8); Eosinophils # 0.3 10*3/uL (0.0-0.87); Eosinophils % 3.1 % (0.00-10.9); Hematocrit 35.6 VOL% (35.7-47.0); Hemoglobin 11.2 GM/DL (12.0-16.0); Immature Granulocytes % 0.4 %; Immature Granulocytes Absolute 0.04 #; Lymphocytes # 2.3 10*3/uL (1.4-4.0); Lymphocytes % 22.1 % (21.3-54.2); Mean Corpuscular HGB Conc 31.5 GM/DL (32-36); Mean Corpuscular Hemoglobin 28 PG (27-34); Mean Corpuscular Volume 89.4 FL (87-102); Mean Platelet Volume 10.2 FL (9.6-12.0); Monocytes % 9.5 % (1.7-12.7); Neutrophils # 6.6 10*3/uL (1.4-7.4); Neutrophils % 64.6 % (38.7-73.9); Platelet Count 285 T/CUMM (130-400); Red Blood Count 3.98 MC/CUMM (3.8-5.5); Red Cell Distribution Width 14.5 % (9.3-17.3); White Blood Count 10.3 T/CUMM (4-12)
[2017-02-08 06:44] LABS: Albumin 3.2 G/DL (3.4-5.0); Calcium 9.4 MG/DL (8.5-10.1); Osmolality,Calculated 285.3 MOS/KG (273-304); Total Protein 6.1 G/DL (6.4-8.3)
[2017-02-08 06:57] LABS: Troponin I Only 0.298 NG/ML (0.00-0.045)
--- NOTE | 2017-02-08 07:19 | EKG Report ---
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
[2017-02-08] MEDS: SPIRONOLACTONE 25 MG TABLET PO SCH (08:15)
[2017-02-08] MEDS: ASPIRIN EC 81 MG TABLET PO SCH (08:15)
[2017-02-08] MEDS: TICAGRELOR 90 MG TABLET PO SCH ×2 (08:16→21:40)
[2017-02-08] MEDS: PANTOPRAZOLE 40 MG TABLET PO SCH (08:16)
[2017-02-08] MEDS: VALSARTAN 80 MG TABLET PO SCH (08:16)
[2017-02-08] MEDS: CARVEDILOL 3.125 MG TABLET PO SCH ×2 (08:16→21:40)
--- NOTE | 2017-02-08 09:09 | EKG Report ---
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
--- NOTE | 2017-02-08 10:44 | Cardiology Progress Note ---
Cardiology - PN: Subj Interval history: Cardiology note 66-year-old woman status post anterior infarction with congestive heart failure status post LAD stent February 04, 2017. Ejection fraction 25% with severe anteroapical hypokinesis/akinesis. Recurrent chest pain Status post proximal RCA stent February 07, 2017 Left groin soft and dry. No bruit or hematoma. Telemetry shows sinus rhythm with occasional PACs. Blood pressure 106/7 in the right arm by me. O2 sat 96% on room air. Regular rhythm no gallop Decreased breath sounds but clear No leg edema Both groin puncture sites look good Lab data Hemoglobin 11.2 hematocrit 35.6 white count 10.3 sodium 141 potassium 4.0 chloride 101 CO2 32 BUN 22 creatinine 0.8 BNP level down to 444 Impression Status post recent anterior [place] with CHF Status post LAD stent February 04, 2017 EF 25% Status post proximal RCA stent February 07, 2017 Diabetes tobacco abuse Hyperlipidemia Status post left ankle surgery January 20, 2017 Plan Aspirin and Brilinta Carvedilol 3.125 mg twice daily Spironolactone 25 mg daily Atorvastatin 80 mg daily Lexapro 10 mg daily Lasix 40 mg daily BMP a.m. Exam (Progress Note) - Constitutional Vitals: Period Temp Pulse Resp BP Sys/[place] Pulse Ox Last 24 Hr 97.7 F-98.5 F 67-93 14-20 91-130/50-72 88-97 Result/EKG - Labs CBC & BMP: 02/08/17 05:29 02/08/17 05:29 Labs: Laboratory Results - last 24 hr 02/07/17 02/07/17 02/07/17 14:10 14:10 20:01 WBC RBC Hgb Hct MCV MCH MCHC RDW Plt Count MPV Neut % (Auto) Lymph % (Auto) [place] % (Auto) Eos % (Auto) Baso % (Auto) Neut # (Auto) Lymph # (Auto) [place] # (Auto) Eos # (Auto) Baso # (Auto) Immature Gran % Nucleated RBC % Immature Gran # Nucleated RBCs # Sodium Potassium Chloride Carbon Dioxide Anion Gap BUN Creatinine GFR Calculation BUN/Creatinine Ratio Glucose POC Glucose Calculated Osmolality Calcium Total Bilirubin AST ALT Alkaline Phosphatase Total Creatine Kinase 83 76 CK-MB (CK-2) 1.5 1.5 Troponin I 0.323 H 0.353 H B-Natriuretic Peptide 444 H Total Protein Albumin Globulin Albumin/Globulin Ratio 02/07/17 02/08/17 02/08/17 21:40 05:29 05:29 WBC 10.3 RBC 3.98 Hgb 11.2 L Hct 35.6 L MCV 89.4 MCH 28 MCHC 31.5 L RDW 14.5 Plt Count 285 MPV 10.2 Neut % (Auto) 64.6 Lymph % (Auto) 22.1 [place] % (Auto) 9.5 Eos % (Auto) 3.1 Baso % (Auto) 0.3 Neut # (Auto) 6.6 Lymph # (Auto) 2.3 [place] # (Auto) 1.0 H Eos # (Auto) 0.3 Baso # (Auto) 0.0 Immature Gran % 0.4 Nucleated RBC % 0.0 Immature Gran # 0.04 Nucleated RBCs # 0.00 Sodium 141 Potassium 4.0 Chloride 101 Carbon Dioxide 32 Anion Gap 12.0 BUN 22 H Creatinine 0.80 GFR Calculation 87 BUN/Creatinine Ratio 27.00 H Glucose 143 H POC Glucose 179 H Calculated Osmolality 285.3 Calcium 9.4 Total Bilirubin 1.00 AST 19 ALT 22 Alkaline Phosphatase 106 Total Creatine Kinase CK-MB (CK-2) Troponin I B-Natriuretic Peptide Total Protein 6.1 L Albumin 3.2 L Globulin 2.9 Albumin/Globulin Ratio 1.1 02/08/17 02/08/17 05:29 07:39 WBC RBC Hgb Hct MCV MCH MCHC RDW Plt Count MPV Neut % (Auto) Lymph % (Auto) [place] % (Auto) Eos % (Auto) Baso % (Auto) Neut # (Auto) Lymph # (Auto) [place] # (Auto) Eos # (Auto) Baso # (Auto) Immature Gran % Nucleated RBC % Immature Gran # Nucleated RBCs # Sodium Potassium Chloride Carbon Dioxide Anion Gap BUN Creatinine GFR Calculation BUN/Creatinine Ratio Glucose POC Glucose 160 H Calculated Osmolality Calcium Total Bilirubin AST ALT Alkaline Phosphatase Total Creatine Kinase 62 CK-MB (CK-2) 1.8 Troponin I 0.298 H B-Natriuretic Peptide Total Protein Albumin Globulin Albumin/Globulin Ratio
[2017-02-08] MEDS: ATORVASTATIN 80 MG TABLET PO SCH (21:40)
[2017-02-08] MEDS: ESCITALOPRAM 10 MG TABLET PO SCH (21:40)
[2017-02-08] MEDS: oxyCODONE/ACETAMINOPHEN 5-325 MG TABLET PO PRN (21:40)
[2017-02-09 04:20] LABS: Basophils % 0.4 % (0.0-0.8); Eosinophils # 0.4 10*3/uL (0.0-0.87); Eosinophils % 3.9 % (0.00-10.9); Hematocrit 34.4 VOL% (35.7-47.0); Hemoglobin 10.8 GM/DL (12.0-16.0); Immature Granulocytes % 0.5 %; Immature Granulocytes Absolute 0.05 #; Lymphocytes # 2.6 10*3/uL (1.4-4.0); Lymphocytes % 27.8 % (21.3-54.2); Mean Corpuscular HGB Conc 31.4 GM/DL (32-36); Mean Corpuscular Hemoglobin 28 PG (27-34); Mean Corpuscular Volume 90.3 FL (87-102); Monocytes # 1.1 10*3/uL (0.11-0.8); Monocytes % 11.4 % (1.7-12.7); Neutrophils # 5.3 10*3/uL (1.4-7.4); Platelet Count 268 T/CUMM (130-400); Red Blood Count 3.81 MC/CUMM (3.8-5.5); Red Cell Distribution Width 14.6 % (9.3-17.3); White Blood Count 9.5 T/CUMM (4-12)
[2017-02-09 04:55] LABS: Albumin 3.1 G/DL (3.4-5.0); Bilirubin,Total 0.5 MG/DL (0.2-1.0); Calcium 9.1 MG/DL (8.5-10.1); Osmolality,Calculated 285.3 MOS/KG (273-304); Potassium 4.1 MMOL/L (3.5-5.1); Total Protein 5.8 G/DL (6.4-8.3)
[2017-02-09 08:29] VITALS: BP 121/65
[2017-02-09] MEDS: CARVEDILOL 3.125 MG TABLET PO SCH (08:52)
[2017-02-09] MEDS: VALSARTAN 80 MG TABLET PO SCH (08:52)
[2017-02-09] MEDS: TICAGRELOR 90 MG TABLET PO SCH (08:53)
[2017-02-09] MEDS: PANTOPRAZOLE 40 MG TABLET PO SCH (08:53)
[2017-02-09] MEDS: SPIRONOLACTONE 25 MG TABLET PO SCH (08:53)
[2017-02-09] MEDS: ASPIRIN EC 81 MG TABLET PO SCH (08:53)
[2017-02-09] MEDS ORDERED: FUROSEMIDE 40 MG TABLET PO SCH (09:00)
--- NOTE | 2017-02-09 11:13 | Discharge Summary ---
Hospital Course - Hospital Course Hospital Course: Cardiology note The patient is a 66-year-old woman status post recent anterior infarct with congestive heart failure. She underwent cardiac cath February 04, [address] Caldera which showed severe proximal LAD stenosis with a patent circumflex and moderate right coronary disease. Ejection fraction 25% with severe anteroapical hypokinesis/akinesis. She underwent LAD stent and a good result was obtained. The patient was discharged home and readmitted on February 07 with postinfarction angina. Repeat cath showed a widely patent LAD stent site with mild disease in the circumflex and a 70% proximal right coronary lesion which was stented with a 4.0 x 20 mm Synergy drug-coated stent that was postdilated to 4.22 mm lumen. Good result obtained. Both the right and left groins look good. No bruit or hematoma. Telemetry shows steady sinus rhythm without ectopy. Lab data remained stable on discharge. White count 9.5 hemoglobin 10.8 hematocrit 34.4 Sodium 141 potassium 4.1 chloride 102 CO2 31 BUN 18 creatinine 0.80 Glucose 147 Her BNP level and troponin level continue to drift down. Blood pressure 110/72 left arm by me. Pulse 74 and regular. Vital arcus. Faint bilateral carotid bruits Decreased breath sounds but clear regular rhythm no murmur or gallop abdomen soft benign Both groins soft and dry no bruit or hematoma. Distal pulses 2+ Impression Ischemic cardiomyopathy EF 25% Status post recent unrecognized anterior infarction with congestive heart failure Status post proximal LAD stent February 04, 2017 Status post proximal RCA stent February 07, 2017 Tobacco abuse Type 2 diabetes Hypertension Status post stroke 2014 Status post left ankle fracture with pinning January 20, 2017 Hyperlipidemia Obesity The patient is discharged home in stable condition Plan No stooping straining or heavy lifting for 1 week to minimize potential groin problems No smoking. The patient and her daughter Nadine had been fully informed that continued smoking does increase her chance for recurrent heart attack and stroke and for aggressive disease progression Continue aspirin 81 mg daily and Brilinta 90 mg twice daily Continue atorvastatin 80 mg daily Continue spironolactone 25 mg daily Continue valsartan 80 mg daily Continue Coreg 3.125 mg twice daily Restart metformin tomorrow February 10 Office visit with EKG and carotid duplex in 2 weeks Findings and plan discussed with patient and daughter Nadine. All questions answered. She agrees to proceed as outlined. - Time spent with patient Time with patient DS: Greater than 30 minutes Diagnosis - Discharge Diagnosis (1) Status post RCA stent Status: Acute (2) Status post LAD stent Status: Chronic Specialty Discharge - Follow Up or Referrals Follow up with: Luis Alberto Jurado MD [Physician] - 2 Weeks (Office visit with EKG and carotid duplex in 2 weeks) Discharge Plan - Discharge Data Condition at Discharge: Stable Discharge Diet: diabetic diet, low fat, low cholesterol Activity: no lifting, no prolonged standing Hygiene: no restrictions Weight Bearing at Discharge: weight bear as tolerated Driving: not for (No driving for 48 hours) Contact your physician if you experience:: fever over 101, Difficulty voiding, Redness or swelling, Nausea/Vomiting, Shortness of breath, Bleeding - Discharge Medications Continue Escitalopram [Lexapro] 10 mg PO BEDTIME metFORMIN [Glucophage] 250 mg PO BID W/MEALS Atorvastatin [Lipitor] 80 mg PO BEDTIME #30 tablet Carvedilol [Coreg] 3.125 mg PO BID #60 tablet Furosemide Tab [Lasix Tab] 40 mg PO DAILY PRN #30 tablet PRN Reason: edema Ticagrelor [Brilinta] 90 mg PO BID #60 tablet Aspirin [Ecotrin] 81 mg PO DAILY #30 tablet oxyCODONE/ACETAMINOPHEN 5-325 [Percocet 5-325] 1 tablet PO DAILY PRN PRN Reason: Pain Spironolactone [Aldactone] 25 mg PO DAILY #30 tablet Valsartan 80 mg PO DAILY #30 tablet - Follow Up or Referral - Forms/Instructions Additional Discharge Instructions: Continue aspirin 81 mg daily and Brilinta 90 mg twice daily. Restart metformin on February 10 Exam - Constitutional Vitals: Period Temp Pulse Resp BP Sys/[place] Pulse Ox Last 24 Hr 96.1 F-98.0 F 71-89 14-18 95-121/51-65 93-97 General appearance: over weight - Head Head exam: Present: normal inspection - Eye Eye exam: Present: EOMI Pupils: Present: VLADIMIR - ENT ENT exam: Present: normal exam - Neck Neck exam: Present: normal inspection - Respiratory Respiratory exam: Present: decreased breath sounds - Cardiovascular Cardiovascular exam: Present: regular rate and rhythm - GI/Abdominal GI/Abdominal exam: Present: normal bowel sounds - Extremities Exam Extremities exam: Present: normal inspection, full ROM - Back Exam Back exam: Present: normal inspection - Neurological Exam Neurological exam: Present: alert, oriented X3 - Psychiatric Psychiatric exam: Present: normal affect - Skin Skin exam: Present: normal color, warm, dry Discharge Results Procedures and tests throughout hospitalization: Pending Orders 02/07/17 15:28 CL heart Routine 02/10/17 04:00 Comp Blood Count Auto Diff IN AM Comprehensive Metabolic Panel IN AM Labs on day of discharge: Labs from last 24 hours 02/09/17 02/09/17 02/09/17 08:12 02:56 02:55 WBC 9.5 RBC 3.81 Hgb 10.8 L Hct 34.4 L MCV 90.3 MCH 28 MCHC 31.4 L RDW 14.6 Plt Count 268 MPV 10.0 Neut % (Auto) 56.0 Lymph % (Auto) 27.8 [place] % (Auto) 11.4 Eos % (Auto) 3.9 Baso % (Auto) 0.4 Neut # (Auto) 5.3 Lymph # (Auto) 2.6 [place] # (Auto) 1.1 H Eos # (Auto) 0.4 Baso # (Auto) 0.0 Immature Gran % 0.5 Nucleated RBC % 0.0 Immature Gran # 0.05 Nucleated RBCs # 0.00 Sodium 141 Potassium 4.1 Chloride 102 Carbon Dioxide 31 Anion Gap 12.1 BUN 18 Creatinine 0.80 GFR Calculation 87 BUN/Creatinine Ratio 22.00 H Glucose 147 H POC Glucose 161 H Calculated Osmolality 285.3 Calcium 9.1 Total Bilirubin 0.50 AST 19 ALT 23 Alkaline Phosphatase 98 Total Protein 5.8 L Albumin 3.1 L Globulin 2.7 Albumin/Globulin Ratio 1.1 02/08/17 02/08/17 16:18 11:38 WBC RBC Hgb Hct MCV MCH MCHC RDW Plt Count MPV Neut % (Auto) Lymph % (Auto) [place] % (Auto) Eos % (Auto) Baso % (Auto) Neut # (Auto) Lymph # (Auto) [place] # (Auto) Eos # (Auto) Baso # (Auto) Immature Gran % Nucleated RBC % Immature Gran # Nucleated RBCs # Sodium Potassium Chloride Carbon Dioxide Anion Gap BUN Creatinine GFR Calculation BUN/Creatinine Ratio Glucose POC Glucose 148 H 174 H Calculated Osmolality Calcium Total Bilirubin AST ALT Alkaline Phosphatase Total Protein Albumin Globulin Albumin/Globulin Ratio DS: Provider Date of admission: 02/07/17 15:10 Primary care physician: . No PCP Attending physician on admission: Luis Alberto Jurado MD Consults: 02/07/17 17:15 Consult to Cardiac Rehabilitation [CONS] Routine Reason for Cardiac Rehabilitation: Risk Factor Modification Discharging clinician: Luis Alberto Jurado MD Expected date of discharge: 02/09/17
== END 2017-02-09 12:00 | disposition home or self-care (01) ==
LOC: EDUNIT# → EDBD → N.EDINP 13:40 → N.ED 13:40 → N.TELEN 15:50
PROVIDERS: ADMIT Internal Medicine Cardiovascular Disease; ATTEND Internal Medicine Cardiovascular Disease
PROC: CLCCHCL (ICD-10-PCS; 2017-02-07 16:45)